=== PATIENT | male | born 1950 | race Caucasian/White ===

== ENCOUNTER → 2016-12-16 07:08 | Day surgery (SDC) | payer MEDICARE, BC ==
[~2016-12-16 07:08] MED LIST: Buffered Lidocaine 1% SYRIN* 3 ML/SYR SYRINGE INTRADERM ONE; Cisatracurium* 2 MG/ML MDV 10 ML ONE; Dexamethasone IV* 4 MG/ML 1 ML (4 MG) ONE; EPHEDrine (Pressors)* 50 MG/ML VIAL ONE; Famotidine IV* 10 MG/ML 2 ML (20 mg) IV ONE; Famotidine IV* 10 MG/ML 2 ML (20 mg) ONE; HYDROmorphone* 1 MG/ML 1 ML SYR IV PRN; KETAMINE HCL* 50 MG/ML 10 ML VIAL ONE; Levalbuterol 0.63MG/3ML NEB INH PRN; Levalbuterol 1.25MG/0.5ML NEB ONE; Lidocain 1% EPI 1:100,000 * 30 ML MDV ONE; Lidocaine 2% PF* 5 ML VIAL ONE; Metoclopramide TAB* 10 MG ONE; Metoclopramide TAB* 10 MG PO ONE; Midazolam* 1 MG/ML 5 ML VIAL (5 MG) ONE; Ondansetron INJ* 2 MG/ML VIAL IV PRN; Ondansetron INJ* 2 MG/ML VIAL ONE; Phenylephrine IV* 40 MCG/ML 10 ML SYRINGE ONE; Propofol* 10 MG/ML 20 ML BTL IV PUSH ONE; Succinylcholine* 20 MG/ML 10 ML VIAL ONE; fentaNYL* 50 MCG/ML 2 ML VIAL (100 MCG VIAL) IV PRN; fentaNYL* 50 MCG/ML 2 ML VIAL (100 MCG VIAL) ONE; oxyCODONE/Acetamin 5/325 MG* TAB PO PRN
[2016-12-16 12:11] VITALS: BP 139/78
--- NOTE | 2016-12-17 02:47 | OP ---
DATE OF OPERATION: 12/16/16 [facility] DATE OF : 46 SURGEON: Chuck Reeves MD FINANCIAL SERVICE PROFESSIONAL: None. ANESTHESIOLOGIST: Gurjit Palmer MD ANESTHESIA: General. PRE-OP DIAGNOSIS: Foreign body of the larynx. POST-OP DIAGNOSIS: Foreign body of the larynx. OPERATIVE PROCEDURE: Microlaryngoscopy with biopsies. ESTIMATED BLOOD LOSS: Negligible. SPECIMEN: Multiple biopsies of the submucosa of the right false vocal cord. INDICATION: This is a 66-year-old male who, several weeks ago, swallowed a fish bone which has left him with a persistent foreign body sensation. He has been able to eat and drink normally with minimal pain, but persistent sense of something in the throat. Flexible laryngoscopy demonstrated what appeared to be slight tenting of the mucosa in the region of the right false vocal cord. A subsequent CT scan revealed a similar appearance to the mucosal edge of the false vocal cord, but no definitive radiopaque foreign body to suggest the presence of a bone. Because of the finding on laryngoscopy and the patient's persistent symptoms, the decision was made to go to the operating room for a micro-laryngoscopy with exploration of the area and possible removal of the bone. DESCRIPTION OF PROCEDURE: The patient was brought to the operating room, general anesthesia was induced and a microlaryngoscopy tube was placed under guidance with the GlideScope. The table was turned and time-out was performed. A variety of laryngoscopes were used to facilitate optimal exposure of the larynx. Ultimately once good exposure was obtained, the laryngoscope was placed into suspension on the Shirley stand. There was fullness focally of the right false vocal cord, which seemed to be in a similar location to the abnormality seen on laryngoscopy, but more rounded suggestive of possible submucosal inflammation. This area was injected with few tenths of a cc of 1% lidocaine with epinephrine. A sickle knife and microscissors were used to incise the mucosa over the area. The submucosal fat was inflamed appearing. The area was extensively dissected both bluntly and sharply with some small spatulas as well as curved scissors. Multiple biopsies of the inflamed- appearing fat were taken with cup forceps in an attempt to hopefully remove a foreign body buried in the area. Ultimately, though, on inspection of the biopsies, it did not appear that there was a bone fragment of any significant size within that tissue. The area was extensively re-explored. Again, more biopsies were taken, but no definitive identifiable bone was able to be identified. When the inflamed fat seemed all to have been essentially resected through multiple biopsies, the decision was made to proceed with a more general diagnostic laryngoscopy. The tongue base and vallecula were explored as were the piriformis sinuses bilaterally in the post coracoid space. No evidence of foreign body was seen in these areas. The patient was then returned to the care of the anesthesiologist. He was extubated without difficulty and delivered to the PACU in stable condition. [id number]/[facility] #: [id number] MTDD
== END | disposition home or self-care (01) ==
LOC: OR 07:08
PROVIDERS: ATTEND Otolaryngology
DX: J38.3 Other diseases of vocal cords (principal); Z79.82 Long term (current) use of aspirin; I25.2 Old myocardial infarction; I25.10 Atherosclerotic heart disease of native coronary artery without angina pectoris; I11.0 Hypertensive heart disease with heart failure; I50.9 Heart failure, unspecified; Z95.5 Presence of coronary angioplasty implant and graft; G47.33 Obstructive sleep apnea (adult) (pediatric); E11.9 Type 2 diabetes mellitus without complications; Z79.84 Long term (current) use of oral hypoglycemic drugs; Z95.810 Presence of automatic (implantable) cardiac defibrillator; E78.5 Hyperlipidemia, unspecified; M10.9 Gout, unspecified; M19.90 Unspecified osteoarthritis, unspecified site; K50.90 Crohn's disease, unspecified, without complications; Z88.8 Allergy status to other drugs, medicaments and biological substances
CPT/HCPCS: 88305; A9270-GY; J0330; J1100; J2250; J2405; J2704; J3010

== ENCOUNTER 2017-06-22 06:09 | Day surgery (SDC) | payer MEDICARE, BC ==
[~2017-06-22 06:09] MED LIST changes: +Buffered Lidocaine 0.9% SYRIN* 5 ML/SYR SYRINGE INTRADERM ONE; -Buffered Lidocaine 1% SYRIN* 3 ML/SYR SYRINGE INTRADERM ONE; -Cisatracurium* 2 MG/ML MDV 10 ML ONE; -Dexamethasone IV* 4 MG/ML 1 ML (4 MG) ONE; -EPHEDrine (Pressors)* 50 MG/ML VIAL ONE; -Famotidine IV* 10 MG/ML 2 ML (20 mg) IV ONE; -Famotidine IV* 10 MG/ML 2 ML (20 mg) ONE; -HYDROmorphone* 1 MG/ML 1 ML SYR IV PRN; -KETAMINE HCL* 50 MG/ML 10 ML VIAL ONE; -Levalbuterol 0.63MG/3ML NEB INH PRN; -Levalbuterol 1.25MG/0.5ML NEB ONE; -Lidocain 1% EPI 1:100,000 * 30 ML MDV ONE; -Lidocaine 2% PF* 5 ML VIAL ONE; -Metoclopramide TAB* 10 MG ONE; -Metoclopramide TAB* 10 MG PO ONE; -Midazolam* 1 MG/ML 5 ML VIAL (5 MG) ONE; -Ondansetron INJ* 2 MG/ML VIAL IV PRN; -Ondansetron INJ* 2 MG/ML VIAL ONE; -Phenylephrine IV* 40 MCG/ML 10 ML SYRINGE ONE; -Propofol* 10 MG/ML 20 ML BTL IV PUSH ONE; -Succinylcholine* 20 MG/ML 10 ML VIAL ONE; -fentaNYL* 50 MCG/ML 2 ML VIAL (100 MCG VIAL) IV PRN; -fentaNYL* 50 MCG/ML 2 ML VIAL (100 MCG VIAL) ONE; -oxyCODONE/Acetamin 5/325 MG* TAB PO PRN
[2017-06-22] MEDS ORDERED: ceFAZolin 2 GM PREMIX (*) 50 ML IVPB ONE (06:47)
[2017-06-22] MEDS ORDERED: Buffered Lidocaine 0.9% SYRIN* 5 ML/SYR SYRINGE ONE (06:47)
[2017-06-22] MEDS ORDERED: Methylene Blue 0.5 %* 50 MG/10 ML AMP IV ONE (07:21)
[2017-06-22] MEDS ORDERED: Lidocaine 1% MPF wEPI 200,000* 30 ML SDV ONE (07:21)
[2017-06-22] MEDS ORDERED: Bupivacaine 0.25% SDV* 30 ML ONE (07:21)
[2017-06-22] MEDS ORDERED: Mineral Oil Sterile, TOPICAL* 25 ML BTL ONE (07:22)
[2017-06-22] MEDS ORDERED: Lidocaine 2% PF * 5 ML VIAL ONE (07:37)
[2017-06-22] MEDS ORDERED: fentaNYL* 50 MCG/ML 2 ML VIAL (100 MCG VIAL) ONE (07:37)
[2017-06-22] MEDS ORDERED: Propofol* 10 MG/ML 20 ML BTL IV PUSH ONE ×2 (07:37→09:01)
[2017-06-22] MEDS ORDERED: Midazolam* 1 MG/ML 2 ML VIAL (2 MG) ONE ×3 (07:37→08:35)
[2017-06-22] MEDS ORDERED: Petrolatum 5 GM* 5 GM PACKET ONE (09:11)
[2017-06-22 09:48] VITALS: BP 119/80
== END 2017-06-22 10:09 | disposition home or self-care (01) ==
LOC: OR 06:09
PROVIDERS: ATTEND Plastic Surgery
DX: C00.0 Malignant neoplasm of external upper lip (principal); E11.9 Type 2 diabetes mellitus without complications; Z79.84 Long term (current) use of oral hypoglycemic drugs; I25.10 Atherosclerotic heart disease of native coronary artery without angina pectoris; I25.2 Old myocardial infarction; Z95.5 Presence of coronary angioplasty implant and graft; I10 Essential (primary) hypertension; K51.90 Ulcerative colitis, unspecified, without complications
CPT/HCPCS: 88305; 88331; 88332; A9270-GY; J0690; J2001; J2250; J2704; J3010

== ENCOUNTER 2017-07-03 07:12 | Inpatient (IN) | payer MEDICARE, BC ==
[2017-07-03] MEDS ORDERED: Morphine INJ* 4 MG/ML 1 ML CARPUJECT IV ONE ×2 (07:54→10:06)
[2017-07-03] MEDS ORDERED: Ondansetron INJ* 2 MG/ML VIAL IV ONE (07:54)
[2017-07-03 08:24] LABS: Add Diff/Slide Review? Slide Review Added; Comments Flag Yes; Hematocrit 41 % (42-52); Hemoglobin 14.4 g/dl (14.0-18.0); Mean Corpuscular HGB Conc 35 g/dl (31-36); Mean Corpuscular Hemoglobin 30 pg (27-31); Mean Corpuscular Volume 85 fL (80-94); Mean Platelet Volume 9 um3 (7.4-10.4); Red Blood Count 4.89 10^6/ul (4.0-5.4); Red Cell Distribution Width 14 % (10.5-15); White Blood Count 18.1 10^3/ul (3.5-10.8)
[2017-07-03 08:31] LABS: Albumin 3.6 g/dL (3.2-5.2); BUN/Creatinine Ratio 19.7 (8-20); C Reactive Protein 119.91 mg/L (< 5.00); Calcium 9.5 mg/dL (8.6-10.3); EGFR African American 69.2 (>60); EGFR Non-African American 53.8 (>60); Globulin 3.8 g/dL (2-4); Potassium 4.3 mmol/L (3.5-5.0); Total Bilirubin 0.8 mg/dL (0.2-1.0); Total Protein 7.4 g/dL (6.4-8.9)
[2017-07-03 08:32] LABS: Troponin I 0.02 ng/mL (<0.04)
--- NOTE | 2017-07-03 10:46 | RAD ---
CLINICAL HISTORY: Right lower quadrant pain, colitis clear COMPARISON: July 07, 2012 TECHNIQUE: Multiple contiguous axial CT scans were obtained of the abdomen and pelvis, without intravenous contrast enhancement. Coronal and sagittal multiplanar reformations are submitted for review. Oral contrast was administered. FINDINGS: The study is limited by the lack of intravenous contrast. This limits evaluation of the solid organs and vasculature. Evaluation of the pelvis is also limited by streak artifact from bilateral hip prostheses. LUNG BASES: The lung bases are clear. LIVER: The liver is diffusely low in attenuation compared to the spleen. There are no focal hepatic parenchymal masses. BILE DUCTS: There is no intrahepatic or extrahepatic biliary dilatation. GALLBLADDER: The gallbladder is normal, without pericholecystic inflammatory change. PANCREAS: The pancreas is normal, without mass or ductal dilatation. SPLEEN: Normal in size and appearance. UPPER GI TRACT: Evaluation of the gastrointestinal tract is limited by incomplete gastric distention. The upper GI tract is unremarkable. SMALL BOWEL AND MESENTERY: The small bowel is normal in contour, course, and caliber. There is no obstruction or dilatation. COLON: Evaluation of the distal colon is limited by streak artifact from bilateral hip prostheses. There are multiple diverticula of the distal colon. The colon is relatively featureless. There is a tubular, vermiform, hollow viscus that is blind ending, and originates from the cecum, consistent with a normal appendix. There is no periappendiceal inflammatory change. This is best seen on axial images 45 through 53. ADRENALS: Normal bilaterally. KIDNEYS: There is a 1.2 cm tract was of lower pole of the left kidney. There is been interval development of mild right pelviectasis and hydroureter. The distal ureters appear by streak artifact from hip prostheses. BLADDER: Evaluation the bladder is limited by streak artifact from bilateral hip prostheses. PELVIC ORGANS: Evaluation with pelvic organs is limited by streak artifact from bilateral hip prostheses. AORTA: There is calcific atherosclerotic disease of the abdominal aorta and its branches, without aneurysmal dilatation IVC: Unremarkable LYMPH NODES: There is no lymphadenopathy by size criteria. ABDOMINAL WALL: There is no evidence for abdominal wall hernia. BONES AND SOFT TISSUES: There are bilateral pars defects at L5 with grade 1 anterolisthesis of L5-S1. Degenerative changes are noted. The patient is status post bilateral hip] plasty. OTHER: None IMPRESSION: 1. EVALUATION IS LIMITED BY BILATERAL STREAK ARTIFACTS FROM HIP PROSTHESES WHICH LIMITS EVALUATION OF THE PELVIS:.. 2. THERE HAS BEEN INTERVAL DEVELOPMENT OF RIGHT-SIDED HYDRONEPHROSIS. 3. THERE IS LEFT-SIDED NEPHROLITHIASIS. 4. THERE IS DIVERTICULOSIS OF THE DISTAL COLON. 5. THE APPENDIX IS NORMAL. 6. FATTY INFILTRATION OF THE LIVER. 7. 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
[2017-07-03] MEDS ORDERED: Ketorolac INJ* 30 MG/ML 1 ML VIAL IV PUSH ONE (12:22)
[2017-07-03] MEDS ORDERED: NS 0.9% 1000 ML* 1,000 ML IV ONE (12:25)
[2017-07-03] MEDS ORDERED: NS 0.9% 1000 ML* 2,000 ML IV ONE (12:31)
[2017-07-03] MEDS ORDERED: methylPREDNISolone 125 MG* 2 ML VIAL IV ONE (13:07)
[2017-07-03 13:12] LABS: Urine Bacteria Absent (Absent); Urine Bilirubin Negative (Negative); Urine Glucose 2+(150 mg/dL) (Negative); Urine Nitrite Negative (Negative)
[2017-07-03] MEDS ORDERED: HYDROmorphone INJ* 1 MG/ML CARPUJECT SYRINGE IV SLOW PU PRN (14:18)
[2017-07-03] MEDS ORDERED: Ondansetron INJ* 2 MG/ML VIAL IV PRN (14:28)
[2017-07-03] MEDS ORDERED: Dextrose 50% Syringe 50 ML* 25 GM/50 ML SYRINGE IV PUSH PRN (14:28)
[2017-07-03] MEDS ORDERED: Iohexol 180 (CONTRAST) 10 ML SDV IV ONE (14:35)
[2017-07-03] MEDS ORDERED: fentaNYL* 50 MCG/ML 2 ML VIAL (100 MCG VIAL) ONE (14:42)
[2017-07-03] MEDS ORDERED: Midazolam* 1 MG/ML 5 ML VIAL (5 MG) ONE (14:42)
[2017-07-03] MEDS ORDERED: Buffered Lidocaine 0.9% SYRIN* 5 ML/SYR SYRINGE INTRADERM ONE (14:52)
[2017-07-03] MEDS ORDERED: oxyCODONE TAB* 5 MG TAB PO PRN (14:53)
[2017-07-03] MEDS ORDERED: HYDROmorphone INJ* 1 MG/ML CARPUJECT SYRINGE IV PRN (14:53)
[2017-07-03] MEDS ORDERED: DiMENhydriNATE IV* 50 MG/ML VIAL IV PUSH PRN (14:53)
[2017-07-03] MEDS ORDERED: Acetaminophen TAB* 325 MG PO PRN (14:53)
[2017-07-03] MEDS ORDERED: cefTRIAXone(*) 2 GM ADDV.VIAL IVPB ONE (15:24)
[2017-07-03] MEDS ORDERED: Dexamethasone IV* 4 MG/ML 1 ML (4 MG) ONE (15:57)
[2017-07-03] MEDS ORDERED: Propofol* 10 MG/ML 20 ML BTL IV PUSH ONE (15:57)
[2017-07-03] MEDS ORDERED: Lidocaine 2% PF * 5 ML VIAL ONE (15:57)
[2017-07-03] MEDS ORDERED: Ketorolac INJ* 30 MG/ML 1 ML VIAL ONE (15:57)
[2017-07-03] MEDS ORDERED: DiMENhydriNATE IV* 50 MG/ML VIAL ONE (16:02)
--- NOTE | 2017-07-03 16:36 | RAD ---
INDICATION: Right cystoscopy and retrograde pyelogram COMPARISONS: CT dated July 03, 2017 TECHNIQUE: Fluoroscopy was provided for a retrograde pyelogram. Total fluoroscopy time is: 12 seconds FINDINGS: Contrast is noted within the renal collecting system IMPRESSION: FLUOROSCOPY WAS PROVIDED FOR A RETROGRADE PYELOGRAM CPT II Codes: 6045F
--- NOTE | 2017-07-03 17:16 | HP ---
CC: Dr. Gutierrez * ADMISSION HISTORY AND PHYSICAL: DATE OF ADMISSION: PRIMARY CARE PROVIDER: Dr. Gutierrez. HEALTHCARE PROXY: His Asha. CODE STATUS: Full. SOURCE OF INFORMATION: History obtained from interview with the patient, review of past medical records. RELIABILITY: Past medical records reliability per the patient is fair. CHIEF COMPLAINT: Abdominal pain. HISTORY OF PRESENT ILLNESS: This is a 67-year-old man with past medical history includes CAD, diabetes, ulcerative colitis, as well as multiple renal calculi, status post shockwave lithotripsy, who over the last several months has had increasing malaise, had noted 3 weeks prior to have what was thought to be a flare of his ulcerative colitis. Typically, his flares involve bloating with frequent stool mucus, gas that occur 1 to 2 times per year. His episode was similar, beginning 3 weeks ago had increasing defecation associated with blood in the stool, increasing gas. Over the last 3 weeks, he lost approximately 20 pounds. Three weeks ago, he has been followed by Gastroenterology, started Apriso, Mesalamine and intrarectal hydrocortisone. He did not improve and in fact worsened, and 1 week prior to presentation he started methylprednisone 40 mg daily. He thinks that there may have been a slight improvement since that time; however, he is hesitant to say that that has occurred. Prior to presentation, he was moving his bowels 24 times per day with continued blood and mucous. The night prior to presentation, pain changed from becoming generalized to located in his right lower quadrant that was described as aching, more severe and different than his ulcerative colitis. His pain did feel "somewhat" similar to past episodes of nephrolithiasis. It was associated with dry heaving and nausea. He presented to the emergency room where he was found with obstructing right nephrolithiasis. 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 The most strenuous activity performed is chopping firewood and carrying it. Although he does note recently it has been more difficult and he did only this to help his brother to perform this recently. He does note increased malaise over the last several months and feeling down, although he associates that with his recent illness. He has not discussed starting an antidepressant and is pre-contemplated with respect to medications for depression at this time. PAST MEDICAL HISTORY: CAD with MIs and 3 stents; type 2 diabetes; hypertension ; hyperlipidemia; ulcerative colitis; bilateral partial hip arthroscopies; multiple renal calculi, status post shockwave lithotripsy; central sleep apnea described by Dr. Soto's notes as complex, now transitions from BiPAP to ASV, although her notes indicate she would have preferred the continued BiPAP. Combined systolic and diastolic heart failure, last EF of 35%. 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 HOME MEDICATIONS: 1. Atorvastatin 20 mg in the evening. 2. Aspirin 81 mg daily. 3. Allopurinol 300 mg in the morning. 4. Acetaminophen 650 mg every 4 hours as needed for pain. 5. Metoprolol succinate 12.5 mg in the morning. 6. Metformin 1000 mg twice daily. 7. Mesalamine 0.75 g twice daily as needed. 8. Losartan 100 mg in the morning. 9. Hydrocortisone intrarectal 100 mg at bedtime as needed. 10. Glipizide 5 mg twice daily. 11. CoQ 10 60 mg in the evening. 12. Vitamin D3 1000 units in the evening. 13. Budesonide 9 mg twice daily. 14. Potassium citrate 2 tabs 3 times daily. 15. [place]-3 fatty acids 2000 mg twice daily. 165. Nitrostat 0.4 mg sublingual as needed for chest pain. ALLERGIES: AZATHIOPRINE, BALSALAZIDE, and IODOQUINOL. FAMILY HISTORY: Mother with CAD at age 65. Sister with CAD. Father with prostate cancer. SOCIAL HISTORY: No tobacco. Drinks 1 to 2 drinks per week. 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 REVIEW OF SYSTEMS: As per HPI, otherwise all other systems negative. PHYSICAL EXAMINATION GENERAL: Well-appearing, lying flat in bed, interactive, pleasant, no apparent distress. VITAL SIGNS: In the emergency room 115/69, heart rate ranging from 47 to 75, 96 % on room air, T-max 97.8. HEENT: Oropharynx is clear. He has dry mucous membranes. Sclerae are anicteric. NECK: He has elevated JVD to the angle of his jaw lying approximately 35 degrees in bed. LUNGS: His lungs were clear to auscultation throughout. HEART: His distant heart sounds, potentially low rumbling diastolic murmur but difficult to auscultate. ABDOMEN: Soft, nondistended with tenderness greatest in the right lower quadrant. No rebound or guarding. EXTREMITIES: Warm and well perfused without cyanosis, clubbing, or edema. NEUROLOGIC: He is alert and oriented x3. His cranial nerves are intact. There is no apparent anxiety, agitation, or depression. DIAGNOSTIC STUDIES/LABORATORY DATA: Labs reviewed notable for sodium 131, chloride 96, creatinine 1.32. Lactic acid 2.8, glucose 254, CRP is 119. White blood cell count is 18.1. He is noted to be taking steroids. Hemoglobin 14.4. His urine specific gravity 1.033. Positive protein, blood, ketones. Red blood cells amorphus crystals. EKG, sinus bradycardia, ventricular rate of 53. Left axis, no R-wave progression. Qs in II, III, and aVF. Data reviewed, CT abdomen and pelvis, impression: Evaluation is limited by bilateral streak artifacts from hip prosthesis. There have been interval development of right-sided hydronephrosis. There is left-sided nephrolithiasis. There is diverticulosis in the distal colon. Appendix normal. Fatty infiltration of liver. Spondylosis with anterolisthesis of L5-S1. ASSESSMENT AND PLAN: This is a 67-year-old man with past medical history of combined systolic and diastolic heart failure, coronary artery disease, severe obstructive sleep apnea, ulcerative colitis and past episodes of nephrolithiasis requiring shockwave lithotripsy presenting with abdominal pain. 1. Abdominal pain does appear to be a combination of underlying worsening ulcerative colitis flare, superimposed nephrolithiasis. For nephrolithiasis, he is taken to the operating room today with Dr. Guevara for stone removal. Continue Dilaudid 1 mg q.4 hours, discontinue Toradol at this time. In respect with ulcerative colitis, transition to IV steroids, methylprednisolone 20 mg q.8 hours. Holding on antibiotics at this time he did think he was getting better as an outpatient. Hold budesonide and rectal hydrocortisone. Return CRPs and ESRs, CBC tomorrow though I suspect leukocytosis in the setting of steroid. 2. Increased lactic acidosis. Repeat lactic acid now, status post receipt of IV fluids. 3. Acute kidney injury in the same dehydration and nephrolithiasis in addition to underlying ulcerative colitis flare. Fluids that he has received above, repeat tomorrow. Gentle with IV fluids and I gave additional to the bolus received in the emergency room given his compliant diastolic/systolic heart failure. 4. Obstructive sleep apnea. Continue with noninvasive positive pressure ventilation with careful attention to immediately after surgery. 5. Type 2 diabetes. Hold metformin and glipizide, cover with sliding scale lispro. In regard to his risk assessment prior to surgery, he is a high risk given his acute kidney injury, less so diabetes and more. With regard to his coronary artery disease, mixed heart failure and complex obstructive sleep apnea , potential consideration should be paid towards his airway and recommend noninvasive positive pressure in the form of BiPAP soon after extubation if needed. 6. DVT prophylaxis: SCDs in the setting of rectal bleeding. [id number]/[facility] #: [id number] CECE
--- NOTE | 2017-07-03 17:23 | PN ---
Progress Note - Progress Note Date of Service: 07/03/17 Note: Addendum: Discussed with anesthesia and urology. During surgery and after procedure HR in 50-60s. No pacer spikes were seen on telemetry. Patient is asymptomatic but and pacer may be set at low of 50 bpm but if his heart rate drops <50 may consider PPM interrogation.
[2017-07-03] MEDS: Insulin LISPRO* 1 UNITS UNIT SUBCUT SCH ×2 (18:21→20:33)
[2017-07-03] MEDS: Atorvastatin* 20 MG TAB PO SCH (19:25)
[2017-07-03] MEDS: methylPREDNISolone SOD 40 MG* 1 ML VIAL IV SCH (19:25)
[2017-07-03] MEDS: CMC:Melatonin (NF) 3 MG TAB PO PRN (20:33)
[2017-07-04] MEDS: methylPREDNISolone SOD 40 MG* 1 ML VIAL IV SCH ×3 (02:15→17:35)
[2017-07-04] MEDS: Acetaminophen TAB* 325 MG PO PRN ×3 (04:24→21:18)
[2017-07-04] MEDS: Insulin LISPRO* 1 UNITS UNIT SUBCUT SCH ×5 (08:32→21:17)
[2017-07-04 08:46] LABS: Hematocrit 35 % (42-52); Hemoglobin 12.1 g/dl (14.0-18.0); Mean Corpuscular HGB Conc 35 g/dl (31-36); Mean Corpuscular Hemoglobin 29 pg (27-31); Mean Corpuscular Volume 84 fL (80-94); Mean Platelet Volume 8 um3 (7.4-10.4); Red Blood Count 4.16 10^6/ul (4.0-5.4); Red Cell Distribution Width 14 % (10.5-15); White Blood Count 14.3 10^3/ul (3.5-10.8)
[2017-07-04 08:53] LABS: BUN/Creatinine Ratio 27.2 (8-20); Calcium 8.6 mg/dL (8.6-10.3); EGFR African American 92.1 (>60); EGFR Non-African American 71.6 (>60); Potassium 4.4 mmol/L (3.5-5.0)
[2017-07-04] MEDS ORDERED: Influenza VAC *QUAD* 2017-18* 0.5 ML SYRINGE IM ONE (09:00)
[2017-07-04] MEDS ORDERED: Aspirin TAB* 325 MG PO SCH (09:00)
[2017-07-04] MEDS: Allopurinol TAB* 300 MG PO SCH (10:12)
[2017-07-04] MEDS: Metoprolol Succinate XL TAB* 25 MG PO SCH (10:13)
[2017-07-04] MEDS: Losartan TAB* 25 MG PO SCH (10:13)
[2017-07-04] MEDS: PTO:Mesalamine (NF) 0.375 GM CAP PO PRN ×2 (11:02→21:19)
[2017-07-04] MEDS: Aspirin Low Dose CHEW TAB* 81 MG PO SCH (11:05)
--- NOTE | 2017-07-04 13:00 | PN ---
Subjective Date of Service: 07/04/17 Interval History: Seen with in room abdominal pain almost completely resolved BMs every 5 hrs with less red blood but still mucous No nausea Would like to attempt ensure with meals Objective Active Medications: Acetaminophen (Tylenol Tab*) 650 mg PO Q4H PRN PRN Reason: FEVER/PAIN Last Admin: 07/04/17 11:05 Dose: 650 mg [facility]op[facility] ([facility]oprim Tab*) [facility] Last Admin: 07/04/17 10:12 Dose: 300 mg Aspirin (Aspirin Low Dose Tab*) [facility] Last Admin: 07/04/17 11:05 Dose: 81 mg Atorvastatin Calcium (Lipitor*) 20 mg PO 1700 [facility] Last Admin: 07/03/17 19:25 Dose: 20 mg Dextrose (D50w Syringe 50 Ml*) 12.5 gm IV PUSH .FOR FS < 60 - SS PRN PRN Reason: FS < 60 Insulin Human Lispro (Humalog*) 0 units [facility] PRN Reason: Protocol Last Admin: 07/04/17 10:14 Dose: 2 units Losartan Potassium (Cozaar Tab*) 100 mg PO [facility] Last Admin: 07/04/17 10:13 Dose: 100 mg Melatonin (Melatonin (Nf)) 3 mg PO BEDTIME PRN; Protocol PRN Reason: Sleep Last Admin: 07/03/17 20:33 Dose: 3 mg Mesalamine (Apriso (Nf)) 0.75 gm PO BID PRN PRN Reason: colitis flair Last Admin: 07/04/17 11:02 Dose: 0.75 gm Methylprednisolone Sodium Succinate (Solu-Medrol 40 Mg) 20 mg IV Q8H [facility] Last Admin: 07/04/17 10:15 Dose: 20 mg Metoprolol Succinate (Toprol Xl Tab*) 12.5 mg PO [facility] Last Admin: 07/04/17 10:13 Dose: 12.5 mg Ondansetron HCl (Zofran Inj*) 4 mg IV Q4H PRN PRN Reason: NAUSEA Oxycodone HCl (Roxycodone Tab*) 5 mg PO ONCE PRN PRN Reason: PAIN - MODERATE Stop: 07/04/17 14:54 Vital Signs 07/03/17 07/03/17 07/03/17 17:51 17:54 18:34 Temperature 97.8 F 98.8 F Pulse Rate 54 58 Respiratory 18 16 16 Rate Blood Pressure 125/66 99/63 (mmHg) O2 Sat by Pulse 100 99 Oximetry 07/03/17 07/03/17 07/03/17 19:34 19:41 20:37 Temperature 98.0 F Pulse Rate 56 Respiratory 12 17 16 Rate Blood Pressure 121/77 (mmHg) O2 Sat by Pulse 96 Oximetry 07/03/17 07/04/17 07/04/17 23:52 03:47 07:47 Temperature 98.0 F 98.3 F 99.0 F Pulse Rate 62 58 53 Respiratory 16 16 16 Rate Blood Pressure 111/58 131/71 123/66 (mmHg) O2 Sat by Pulse 96 98 93 Oximetry 07/04/17 07/04/17 08:51 11:36 Temperature 98.4 F Pulse Rate 54 Respiratory 18 16 Rate Blood Pressure 109/62 (mmHg) O2 Sat by Pulse 99 Oximetry Oxygen Devices in Use Now: None Appearance: NAD Eyes: No Scleral Icterus, PERRLA Ears/Nose/Mouth/Throat: NL Teeth, Lips, Gums, Clear Oropharnyx, Mucous Membranes Moist Neck: NL Appearance and Movements; NL JVP, Trachea Midline Respiratory: Symmetrical Chest Expansion and Respiratory Effort, Clear to Auscultation Cardiovascular: NL Sounds; No Murmurs; No JVD, RRR Abdominal: NL Sounds; No Tenderness; No Distention, No Hepatosplenomegaly Lymphatic: No Cervical Adenopathy Skin: No Rash or Ulcers Neurological: Alert and Oriented x 3 Result Diagrams: 07/04/17 08:30 07/04/17 08:30 Microbiology and Other Data: Microbiology 07/04/17 07:55 Stool Gross Appearance - Final Stool C. difficile DNA Amplification - Final 027 Presumptive NEGATIVE Toxigenic C.diff NEGATIVE 07/04/17 07:55 Stool Occult Blood (MICHAEL) - Final Stool Assess/Plan/Problems-Billing Assessment: 67 yo M h/o ulcerative colitis, CAD, DM2, POOL p/w abdominal pain found with UC flare AND obstructing right sided nephrolithiasis - Patient Problems (1) Nephrolithiasis Comment: s/p removal 07/03 (2) Ulcerative colitis Comment: improving c/w IV steroids c/w mesalamine advance diet (3) Diabetes Comment: Lispro SS while on steroids (4) Acute kidney injury Comment: resolved (5) DVT prophylaxis Comment: SCDs in setting fo rectal bleeding
--- NOTE | 2017-07-04 13:13 | OP ---
CC: Dr. Gutierrez * DATE OF OPERATION: 07/03/17 - ROOM #[id number] DATE OF : 46 SURGEON: Henry Guevara MD ANESTHESIOLOGIST: Tanisha Licona MD ANESTHESIA: General. PRE-OP DIAGNOSES: 1. Right hydronephrosis. 2. Right ureteral calculus. POST-OP DIAGNOSES: 1. Right hydronephrosis. 2. Right ureteral calculus. OPERATIVE PROCEDURE: 1. Cystoscopy. 2. Right ureteroscopy and extraction of distal right ureteral calculus (6 mm). 3. Right retrograde pyelography. INDICATIONS: Mr. Santoyo is a 67-year-old white male, who is a known stone former and had the treatment for left renal calculi in the past. He presented to our office last week complaining of urgency, frequency, and some bladder pain. His urinalysis was negative and had good bladder emptying. The symptoms spontaneously improved. Early this morning, he developed symptoms of right renal colic and he represented to the emergency room. The patient also has been having reactivation of his ulcerative colitis and was started yesterday on steroids. The patient had a CT of the abdomen and pelvis with oral contrast, but no IV contrast. This study showed moderate right hydroureteronephrosis with tortuosity of the proximal ureter. The distal ureter could not be seen because of artifacts from bilateral hip prostheses. Because of above history and findings, the duration of the pain, and the degree of hydronephrosis, the patient is taken to the operating room for the above procedure. PATHOLOGY AT CYSTOSCOPY: The penile and bulbar urethrae looked normal. The prostatic urethra measured about 2.5 cm in length. There was moderate obstruction by prostate enlargement and elevation of the bladder neck. Examination of the bladder showed no suspicious lesions. The left ureteral orifice looked normal. There was some edema around the right orifice. A grayish calculus was noted just proximal to the orifice. Upon right ureteroscopy, a 5- to 6-mm calculus that had the gross appearance of calcium oxalate stone was noted. There was dilatation of the ureter proximal to the stone. Inspection of the whole ureter all the way up to the level of the ureteropelvic junction showed no additional calculi. Right retrograde pyelography showed moderate right hydronephrosis and a slight kink of the proximal ureter. DESCRIPTION OF PROCEDURE: After successful general anesthesia, the patient was placed in the lithotomy position and was prepped and draped for a cystoscopy. Cystoscopy was performed. The bladder was inspected and the above findings were noted. A flexible-tip guidewire was then introduced into the right orifice and positioned in the area of the renal pelvis. A 6.5 semi-rigid ureteroscope was then introduced inside the bladder. A flexible-tip basket was introduced through the port of the ureteroscope and the flexible tip was introduced in to the right orifice and was used as a guide to introduce the ureteroscope into the right ureter with minimal trauma. The calculus was identified. It was felt that it can be basketed safely without having to break it. The calculus was then extracted and sent for stone analysis. The ureteroscope was then introduced all the way into the proximal ureter and no additional calculi were seen. The ureteroscope was then removed. Retrograde pyelography was performed. There was adequate drainage of contrast from the kidney and the ureter. For that reason, it was decided not to place a ureteral stent. The patient tolerated the procedure well and left the operating room in good condition. [id number]/[facility] #: [id number] [facility]
[2017-07-04] MEDS: Atorvastatin* 20 MG TAB PO SCH (17:35)
[2017-07-04] MEDS: CMC:Melatonin (NF) 3 MG TAB PO PRN (21:19)
[2017-07-05] MEDS: methylPREDNISolone SOD 40 MG* 1 ML VIAL IV SCH ×2 (02:14→10:21)
[2017-07-05 05:56] LABS: Hematocrit 35 % (42-52); Mean Corpuscular HGB Conc 35 g/dl (31-36); Mean Corpuscular Hemoglobin 29 pg (27-31); Mean Corpuscular Volume 84 fL (80-94); Mean Platelet Volume 8 um3 (7.4-10.4); Red Cell Distribution Width 14 % (10.5-15); White Blood Count 13.7 10^3/ul (3.5-10.8)
[2017-07-05 06:11] LABS: BUN/Creatinine Ratio 28.9 (8-20); Calcium 8.6 mg/dL (8.6-10.3); EGFR African American 107.6 (>60); EGFR Non-African American 83.7 (>60); Potassium 4.3 mmol/L (3.5-5.0)
[2017-07-05] MEDS: Acetaminophen TAB* 325 MG PO PRN (08:02)
[2017-07-05 08:04] VITALS: BP 140/70
[2017-07-05] MEDS: Losartan TAB* 25 MG PO SCH (08:12)
[2017-07-05] MEDS: Aspirin Low Dose CHEW TAB* 81 MG PO SCH (08:13)
[2017-07-05] MEDS: Allopurinol TAB* 300 MG PO SCH (08:13)
[2017-07-05] MEDS: Metoprolol Succinate XL TAB* 25 MG PO SCH (08:14)
[2017-07-05] MEDS: Insulin LISPRO* 1 UNITS UNIT SUBCUT SCH (08:16)
--- NOTE | 2017-07-06 05:36 | DS ---
CC: Dr. Gutierrez; Dr. Del Rosario * DISCHARGE SUMMARY: DATE OF ADMISSION: 07/03/17 DATE OF DISCHARGE: 07/05/17 PRIMARY CARE PROVIDER: Dr. Gutierrez. CONSULTING UROLOGIST: Dr. Guevara. DISCHARGING PROVIDER: KILLIAN Garcia SUPERVISING PHYSICIAN: Dr. Kiera Combs * (DICTATED BY KILLIAN GARCIA) PRIMARY DISCHARGE DIAGNOSES: 1. Obstructing right ureteral stone, status post extraction by Dr. Guevara 04/12 without retained ureteral stent. 2. Acute kidney injury secondary to hypovolemia - resolved. 3. Ulcerative colitis flare. 4. Hyperglycemia with known diabetes mellitus, not typically on steroids at home. DISCHARGE MEDICATIONS: 1. Potassium citrate 2 tablets p.o. 3 times daily. 2. Acetaminophen 650 mg p.o. q.4 hours as needed for pain. 3. Allopurinol 300 mg p.o. daily. 4. Aspirin 81 mg p.o. daily. 5. Atorvastatin 20 mg p.o. daily. 6. Budesonide 9 mg p.o. twice daily - hold while on prednisone. 7. Vitamin D 3000 units p.o. daily. 8. Coenzyme Q10 60 mg p.o. nightly. 9. Glipizide 10 mg p.o. twice daily. 10. Hydrocortisone suppository 100 mg rectally at bedtime. 11. Losartan 100 mg p.o. daily. 12. Mesalamine 0.75 g p.o. twice daily. 13. Metformin 1000 mg p.o. twice daily. 14. Metoprolol succinate 12.5 mg p.o. daily. 15. Nitroglycerine 0.4 mg sublingual as needed for chest pain. 16. Fish oil 2000 mg p.o. twice daily. 17. Prednisone at a tapering dose starting at 40 mg daily with instructions to taper 10 mg weekly or as directed by Dr. Del Rosario. Medication changes: 1. Hold budesonide. 2. Prednisone per taper instructions. 3. Increase glipizide while on prednisone. HOSPITAL IMAGIN. CT abdomen and pelvis demonstrates right-sided hydronephrosis with some artifact limiting evaluation of the pelvis, left-sided nephrolithiasis, no other acute process noted. 2. Retrograde pyelogram. HOSPITAL COURSE: This is a 67-year-old gentleman with ulcerative colitis and non- insulin-dependent diabetes, as well as known history of nephrolithiasis with prior lithotripsy generally followed by Dr. Thomas for [facility], who presented to the emergency department with complaints of abdominal pain. The patient started with abdominal pain actually almost 3 weeks before hospital admission with associated increased number of bowel movements, gas, blood in the stool, and mucus consistent with his prior flares of ulcerative colitis. He was seen by his machine splitter and started on Apriso/mesalamine and rectal hydrocortisone suppositories and the day prior to admission was started on oral prednisone. Despite these interventions, the patient did not feel that his colitis symptoms were improving significantly. The pain that brought him to the emergency department; however, was a sudden sharp right lower quadrant abdominal pain not consistent with his prior ulcerative colitis flares. Initial imaging demonstrated right-sided hydronephrosis with suspicion for an obstructing right ureteral stone. Initial labs demonstrated a leukocytosis with a white blood cell count of 18,000 thought to be related to recent steroid use. No significant electrolyte derangements, but lactic acid was elevated at 2.8 with a CRP of 120 and mildly elevated BUN and creatinine to 26 and 1.32. The patient underwent retrograde pyelogram with Dr. Guevara and extraction of a 6- mm stone. Right ureteral stent was not required. Urinalysis did not demonstrate signs of infection. The patient's reported release of his right lower quadrant abdominal pain with this continued to be quite symptomatic related to his colitis and was started on IV corticosteroids. The patient's colitis symptoms improved throughout his hospital stay. His appetite increased, the frequency of his stools decreased, and his abdominal pain decreased. He was still mildly symptomatic at the time of discharge; however, but symptoms felt to be manageable at home. Of note, the patient was at least moderately hyperglycemic during his hospital stay likely related to the corticosteroids. DISPOSITION AND FOLLOWUP PLAN: The patient is being discharged to home. Recommend medication changes as outlined above. He was previously prescribed a prednisone taper by Dr. Del Rosario and was instructed to complete those taper instructions starting at 40 mg daily. Instructions to taper 10 mg weekly or as further directed by Dr. Del Rosario. A followup appointment was made with Dr. Del Rosario for the 16 of July. No specific followup necessary regarding his ureteral stone extraction, but he can continue to follow up with Dr. Thomas as previously scheduled or on an as needed basis. Regarding his hyperglycemia, his glipizide was doubled at the time of discharge with instructions to check his glucose before breakfast and dinner, record those results and discuss with Dr. Gutierrez in regards to further management. Can tolerate some hyperglycemia during his use of corticosteroids, but if it becomes severely out of control, he may require insulin for a short period of time. His glipizide should be tapered back to his prior dose as his prednisone is tapered as well. KILLIAN GARCIA [id number]/[facility] #: [id number] CECE
== END 2017-07-05 11:20 | disposition home or self-care (01) | DRG 669 ==
LOC: ED 07:12 → OR 14:46 → ED 14:49 → OBSVTOIN 17:44 → SSU 17:44
PROVIDERS: ADMIT Urology; ATTEND Internal Medicine
PROC: BT1D1ZZ Fluoroscopy of Right Kidney, Ureter and Bladder using Low Osmolar Contrast (ICD-10-PCS; 2017-07-03)
PROC: 0TC68ZZ Extirpation of Matter from Right Ureter, Via Natural or Artificial Opening Endoscopic (ICD-10-PCS; principal; 2017-07-03 15:00)
DX: N13.2 Hydronephrosis with renal and ureteral calculous obstruction (principal); N17.9 Acute kidney failure, unspecified; E87.2 Acidosis; I11.0 Hypertensive heart disease with heart failure; I50.42 Chronic combined systolic (congestive) and diastolic (congestive) heart failure; K51.90 Ulcerative colitis, unspecified, without complications; E11.65 Type 2 diabetes mellitus with hyperglycemia; I10 Essential (primary) hypertension; I25.10 Atherosclerotic heart disease of native coronary artery without angina pectoris; E78.5 Hyperlipidemia, unspecified; G47.31 Primary central sleep apnea; G47.33 Obstructive sleep apnea (adult) (pediatric); E86.0 Dehydration; M19.90 Unspecified osteoarthritis, unspecified site; N13.1 Hydronephrosis with ureteral stricture, not elsewhere classified; E86.1 Hypovolemia; Z79.52 Long term (current) use of systemic steroids; Z80.42 Family history of malignant neoplasm of prostate; Z87.442 Personal history of urinary calculi; I25.2 Old myocardial infarction; Z95.5 Presence of coronary angioplasty implant and graft; Z85.828 Personal history of other malignant neoplasm of skin; Z88.8 Allergy status to other drugs, medicaments and biological substances; Z88.1 Allergy status to other antibiotic agents; Z82.49 Family history of ischemic heart disease and other diseases of the circulatory system; Z95.0 Presence of cardiac pacemaker; Z79.82 Long term (current) use of aspirin; Z79.84 Long term (current) use of oral hypoglycemic drugs
CPT/HCPCS: 36415; 74176; 74420; 80048; 80053; 81003; 81015; 82272; 82365; 82947; 83605; 83690; 84484; 85025; 85027; 86140; 86850; 86900; 86901; 87493; 88300; 90686; 93005; A9270-GY; J0696; J1100; J1240; J1885; J2250; J2270; J2405; J2704; J2920; J3010

== ENCOUNTER 2017-07-23 22:47 | Emergency (ER) | payer MEDICARE, BC ==
[2017-07-23 22:55] VITALS: BP 126/46
== END 2017-07-24 00:13 | disposition left against medical advice (07) ==
LOC: ED 22:47
DX: R53.1 Weakness (principal); Z53.21 Procedure and treatment not carried out due to patient leaving prior to being seen by health care provider

== ENCOUNTER 2017-08-15 19:24 | Emergency (ER) | payer MEDICARE, BC ==
[2017-08-15] MEDS ORDERED: Morphine INJ* 4 MG/ML 1 ML CARPUJECT IV ONE (19:56)
[2017-08-15] MEDS ORDERED: NS 0.9% 1000 ML* 1,000 ML IV ONE (19:56)
[2017-08-15] MEDS ORDERED: Ondansetron INJ* 2 MG/ML VIAL IV ONE (19:56)
[2017-08-15 20:58] LABS: Hematocrit 33 % (42-52); Hemoglobin 11.1 g/dl (14.0-18.0); Mean Corpuscular HGB Conc 34 g/dl (31-36); Mean Corpuscular Hemoglobin 29 pg (27-31); Mean Corpuscular Volume 86 fL (80-94); Mean Platelet Volume 8 um3 (7.4-10.4); Red Blood Count 3.82 10^6/ul (4.0-5.4); Red Cell Distribution Width 16 % (10.5-15); White Blood Count 8.4 10^3/ul (3.5-10.8)
--- NOTE | 2017-08-15 20:58 | RAD ---
CLINICAL HISTORY: Left flank pain with reported left renal stones. COMPARISON: Most recent comparison CT examination is dated July 03, 2017 TECHNIQUE: Noncontrast CT examination of the abdomen and pelvis from the lung bases through the initial tuberosities. FINDINGS: VISUALIZED LUNG BASES: There are hypoventilatory changes bilateral lung bases. Otherwise the visualized lung bases are grossly clear. There is no pleural effusion. ABDOMEN AND PELVIS: Evaluation of the solid organs and vasculature is limited without intravenous contrast. The liver, spleen, pancreas and adrenal glands are grossly normal in appearance. The gallbladder is normal. The right kidney is normal in appearance without focal mass, calcification or signs of hydronephrosis. At the lower pole left collecting system there are 2 coarse calcifications adjacent to each other measuring 1 cm and 5 mm and greatest dimension (coronal image 60). These appear to correspond to the conglomeration of stones seen on the prior CT examination. There is no definite renal calcification in the proximal or mid level left ureter. At the level of the distal ureters including the ureterovesical junction there is severe streak artifact caused by bilateral hip prosthesis which limits evaluation at this level. Evaluation of the gastrointestinal tract is limited without oral contrast. The small and large bowel are not distended.The patient's normal appendix is identified in the right lower quadrant measuring 7 mm in diameter with gas in the lumen (axial image 101). There are scattered rectosigmoid diverticula but none exhibit focal inflammatory change characteristic of diverticulitis. There is no gross retroperitoneal or mesenteric lymphadenopathy. There is coarse calcification in the prostate gland. The mildly calcified abdominal aorta and iliac arteries are normal in course and diameter. Degenerative changes include multilevel loss of intervertebral disc height involving the lower thoracic and lumbar spine and multilevel lumbar spine vacuum disc phenomenon. Bilateral hip prostheses are anatomically aligned. The prostheses cause severe streak artifact at the level of the low pelvis which partially obscures evaluation of the distal ureters and ureterovesical junction as well as a portion of the rectosigmoid colon. IMPRESSION: 1. There are 2 lower pole renal stones measuring approximately 1 cm and 5 mm in greatest cephalocaudal dimension. These may correspond to the conglomeration of stones measuring 12 mm in greatest cephalocaudal dimension on the previous CT examination. There are no definite ureteral stones or signs of hydronephrosis, however evaluation of the distal ureters and the ureterovesical junctions are limited by streak artifact caused by the hip prostheses. 2. Scattered diverticula without acute inflammatory change. 3. Additional chronic and degenerative changes described in the body the report.
[2017-08-15 21:10] LABS: BUN/Creatinine Ratio 27.2 (8-20); EGFR African American 104.9 (>60); EGFR Non-African American 81.6 (>60); Total Protein 6.5 g/dL (6.4-8.9)
[2017-08-15 21:11] LABS: Albumin 3.7 g/dL (3.2-5.2); Globulin 2.8 g/dL (2-4); Total Bilirubin 0.3 mg/dL (0.2-1.0)
[2017-08-15 21:12] LABS: Urine Bacteria Absent (Absent); Urine Bilirubin Negative (Negative); Urine Glucose 3+(>=500 mg/dL) (Negative); Urine Nitrite Negative (Negative)
--- NOTE | 2017-08-15 22:05 | ED ---
Arnulfo Gaines Thomas, scribed for Carly Gilmore MD on 08/15/17 at 2003 . Abdominal Pain/Male - HPI Summary HPI Summary: The pt is a 67 y/o M presenting to the ED c/o left flank pain for the last week. The pain waxes and wanes and has progressively worsened over the course of the week. The pain is described as similar to his prior kidney stones. The pain is rated 5/10. The pain does not radiate. The pain is aggravated by nothing and is alleviated by nothing. The patient has treated the pain with acetaminophen and ibuprofen BDC MANAGER. Pt denies vomiting. PMHx includes ulcerative colitis. His last BM was today at 16:00. He has a lithotripsy scheduled with a local urologist on August 30, 2017. - History of Current Complaint Chief Complaint: EDFlankPain Stated Complaint: FLANK PAIN Time Seen by Provider: 08/15/17 19:45 Hx Obtained From: Patient Onset/Duration: Lasting Weeks - 1, Still Present, Worse Since - progressively Timing: Constant Severity Currently: Moderate Pain Intensity: 3 Pain Scale Used: 0-10 Numeric Location: Flank - L Radiates: No Character: Other: - similar to prior kidney stones Aggravating Factor(s): Nothing Alleviating Factor(s): Nothing Associated Signs And Symptoms: Negative: Vomiting - Allergies/Home Medications Allergies/Adverse Reactions: Allergies Allergy/AdvReac Type Severity Reaction Status Date / Time Iodixanol [From Visipaque] Allergy Severe Swelling Verified 08/15/17 19:32 Of Face,Lips,& Throat Azathioprine Allergy Intermediate Abdominal Verified 08/15/17 19:32 Pain Balsalazide Allergy Intermediate Rash Verified 08/15/17 19:32 PMH/Surg Hx/FS Hx/Imm Hx Previously Healthy: No Endocrine/Hematology History: Reports: Hx Diabetes - CONTROLLED WITH MEDICATION TYPE 2 BLD SUGAR CHECKED OFTEN Denies: Hx Sickle Cell Disease Cardiovascular History: Reports: Hx Angina - TWO SEPERATE OCCASSIONS, Hx Auto Implanted Cardiovert Defib, Hx Coronary Artery Disease - STENTX3 2010, Hx Hypercholesterolemia, Hx Hypertension - on meds pt states controlled, Hx Myocardial Infarction, Hx Pacemaker/ICD - pacer icd 2010, Hx Peripheral Vascular Disease - distal limb bilat Comment Only: Other Cardiovascular Problems/Disorders - 2010 ANGIOCATH AND MORE STENTS INSERTED Respiratory History: Reports: Hx Sleep Apnea - DX 2013 Denies: Other Respiratory Problems/Disorders GI History: Reports: Other GI Disorders - ULERCERTIVE COLITIS Denies: Hx Irritable Bowel History: Reports: Hx Kidney Stones - LEFT 28YEARS WITH 2 LITHOTRIPSIES Musculoskeletal History: Reports: Hx Arthritis - OSTEO GENERALIZED, Other Musculoskeletal History - 2 HIPS REPLACEMENTS 2006, 2010 Sensory History: Reports: Hx Contacts or Glasses - GLASSES, Hx Hearing Aid - BILAT Opthamlomology History: Reports: Hx Contacts or Glasses - GLASSES Neurological History: Denies: Other Neuro Impairments/Disorders - Cancer History Hx Chemotherapy: No - Surgical History Surgery Procedure, Year, and Place: 2001 - HEART ATTACK INITIAL STENTS (3). 2006 - HIP RIGHT RESURFACING [place] DR. DANG. 2010 - HIP LEFT RESURFACING. 2009 - FINGERS DISTAL FUSING BILAT INDEX. 2011 - LITHOTRIPSY. 2010 - PACEMAKER. STENTS AT [place], AND PACEMAKER IN [place]. SQUAMOUS CELL [place] DR. LEWIS OFFICE Hx Anesthesia Reactions: No - Immunization History Date of Tetanus Vaccine: up to date per pt. Infectious Disease History: No Infectious Disease History: Denies: Hx Clostridium Difficile, Hx of Known/Suspected MRSA, Hx Shingles, Hx Tuberculosis, History Other Infectious Disease, Traveled Outside the [place] in Last 30 Days - Family History Known Family History: Positive: Cardiac Disease - mother dec. of [place] @ 65, grandmother dec of [place] in 40s-50s - Social History Alcohol Use: Occasionally Alcohol Amount: 3-2 WEEKLY BEER Substance Use Type: Reports: None Hx Tobacco Use: No Smoking Status (MU): Never Smoked Tobacco Review of Systems Negative: Fever Positive: Abdominal Pain - L. Negative: Vomiting All Other Systems Reviewed And Are Negative: Yes Physical Exam - Summary Physical Exam Summary: VITAL SIGNS: Reviewed. GENERAL: Patient is a well-developed and nourished male who is lying comfortable in the stretcher. Patient is not in any acute respiratory distress. HEAD AND FACE: No signs of trauma. No ecchymosis, hematomas or skull depressions. No sinus tenderness. EYES: PERRLA, EOMI x 2, No injected conjunctiva, no nystagmus. EARS: Hearing grossly intact. Ear canals and tympanic membranes are within normal limits. MOUTH: Oropharynx within normal limits. NECK: Supple, trachea is midline, no adenopathy, no JVD, no carotid bruit, no c- spine tenderness, neck with full ROM. CHEST: Symmetric, no tenderness at palpation LUNGS: Clear to auscultation bilaterally. No wheezing or crackles. CVS: Regular rate and rhythm, S1 and S2 present, no murmurs or gallops appreciated. ABDOMEN: Soft, non-tender. No signs of distention. No rebound no guarding, and no masses palpated. Bowel sounds are normal. BACK: There is no CVA tenderness. EXTREMITIES: FROM in all major joints, no edema, no cyanosis or clubbing. NEURO: Alert and oriented x 3. No acute neurological deficits. Speech is normal and follows commands. SKIN: Dry and warm Triage Information Reviewed: Yes Vital Signs On Initial Exam: Initial Vitals Temp Pulse Resp BP Pulse Ox 98.1 F 73 14 124/75 98 08/15/17 19:29 08/15/17 19:29 08/15/17 19:29 08/15/17 19:29 08/15/17 19:29 Vital Signs Reviewed: Yes Diagnostics - Vital Signs Vital Signs Temp Pulse Resp BP Pulse Ox 08/15/17 20:00 69 98 08/15/17 19:46 70 97 08/15/17 19:43 135/78 08/15/17 19:29 98.1 F 73 14 124/75 98 - Laboratory Lab Results: Lab Results 08/15/17 08/15/17 08/15/17 Range/Units 20:45 20:45 20:45 WBC 8.4 (3.5-10.8) 10^3/ul RBC 3.82 L (4.0-5.4) 10^6/ul Hgb 11.1 L (14.0-18.0) g/dl Hct 33 L (42-52) % MCV 86 (80-94) fL MCH 29 (27-31) pg MCHC 34 (31-36) g/dl RDW 16 H (10.5-15) % Plt Count 212 (150-450) 10^3/ul MPV 8 (7.4-10.4) um3 Neut % (Auto) 67.5 (38-83) % Lymph % (Auto) 16.0 L (25-47) % [place] % (Auto) 14.0 H (1-9) % Eos % (Auto) 1.7 (0-6) % Baso % (Auto) 0.8 (0-2) % Absolute Neuts (auto) 5.7 (1.5-7.7) 10^3/ul Absolute Lymphs (auto) 1.3 (1.0-4.8) 10^3/ul Absolute Monos (auto) 1.2 H (0-0.8) 10^3/ul Absolute Eos (auto) 0.1 (0-0.6) 10^3/ul Absolute Basos (auto) 0.1 (0-0.2) 10^3/ul Absolute Nucleated RBC 0 10^3/ul Nucleated RBC % 0 Sodium 134 (133-145) mmol/L Potassium 4.0 (3.5-5.0) mmol/L Chloride 103 (101-111) mmol/L Carbon Dioxide 24 (22-32) mmol/L Anion Gap 7 (2-11) mmol/L BUN 25 H (6-24) mg/dL Creatinine 0.92 (0.67-1.17) mg/dL Est GFR ( Amer) 104.9 (>60) Est GFR (Non-Af Amer) 81.6 (>60) BUN/Creatinine Ratio 27.2 H (8-20) Glucose 177 H (70-100) mg/dL Calcium 9.0 (8.6-10.3) mg/dL Total Bilirubin 0.30 (0.2-1.0) mg/dL AST 22 (13-39) U/L ALT 20 (7-52) U/L Alkaline Phosphatase 53 (34-104) U/L Total Protein 6.5 (6.4-8.9) g/dL Albumin 3.7 (3.2-5.2) g/dL Globulin 2.8 (2-4) g/dL Albumin/Globulin Ratio 1.3 (1-3) Urine Color Yellow Urine Appearance Clear Urine pH 5.0 (5-9) Ur Specific [place] 1.021 (1.010-1.030) Urine Protein Negative (Negative) Urine Ketones Negative (Negative) Urine Blood 1+ H (Negative) Urine Nitrate Negative (Negative) Urine Bilirubin Negative (Negative) Urine Urobilinogen Negative (Negative) Ur Leukocyte Esterase Negative (Negative) Urine WBC (Auto) Trace(0-5/hpf) (Absent) Urine RBC (Auto) 1+(3-5/hpf) H (Absent) Urine Bacteria Absent (Absent) Urine Glucose 3+(>=500 mg/dl) H (Negative) Result Diagrams: 08/15/17 20:45 08/15/17 20:45 Lab Statement: Any lab studies that have been ordered have been reviewed, and results considered in the medical decision making process. - CT CT Abd/Pel CT Interpretation: Positive (See Comments) - 1. There are 2 lower pole renal stones measuring approximately 1 cm and 5 mm in greatest cephalocaudal dimension. These may correspond to the conglomeration of stones measuring 12 mm in greatest cephalocaudal dimension on the previous CT examination. There are no definite ureteral stones or signs of hydronephrosis, however evaluation of the distal ureters and the ureterovesical junctions are limited by streak artifact caused by the hip prostheses. 2. Scattered diverticula without acute inflammatory change. 3. Additional chronic and degenerative changes described in the body the report. ED provider reviewed this report and agrees. CT Interpretation Completed By: Radiologist Re-Evaluation - Re-Evaluation First Eval Re-Evaluation Time: 21:51 Change: Improved Comment: The patient feels better and is pain free at this time. Abdominal Pain Fem Course/Dx - Course Assessment/Plan: The pt is a 67 y/o M presenting to the ED c/o left flank pain for the last week. The pain waxes and wanes and has progressively worsened over the course of the week. The pain is described as similar to his prior kidney stones. The pain is rated 5/10. The pain does not radiate. The pain is aggravated by nothing and is alleviated by nothing. The patient has treated the pain with acetaminophen and ibuprofen BDC MANAGER. Pt denies vomiting. PMHx includes ulcerative colitis. His last BM was today at 16:00. He has a lithotripsy scheduled with a local urologist on August 30, 2017. The patient has renal calculi on the left side without hydronephrosis or obstruction. This does not explain the pain. The pain could possibly be due to muscle pain. The patient will be discharged home with Percocet to follow up with his urologist tomorrow. - Diagnoses Provider Diagnoses: Left back pain, Nephrolithiasis Discharge - Discharge Plan Condition: Stable Disposition: HOME Prescriptions: oxyCODONE/Acetamin 5/325 MG* [Percocet 5/325 TAB*] 1 tab PO Q6H PRN #20 tab MDD 4 PRN Reason: Pain - Moderate Oxycodone/ASA 5/325 (NF) [Percodan 5/325 (NF)] 1 tab PO Q6HR PRN #20 tab PRN Reason: Pain Oxycodone/ASA 5/325 (NF) [Percodan 5/325 (NF)] 1 tab PO Q6HR PRN #20 tab PRN Reason: Pain - Moderate Patient Education Materials: Kidney Stones (ED) Referrals: Boni Gutierrez MD [Primary Care Provider] - If Needed Teddy Thomas MD [Medical Doctor] - 1 Day Additional Instructions: Follow up with Dr. Thoams tomorrow. The documentation as recorded by the Arnulfo garnica Thomas accurately reflects the service I personally performed and the decisions made by Mando rogers Abdul, MD.
[2017-08-16 00:46] VITALS: BP 115/70
== END 2017-08-15 23:05 | disposition home or self-care (01) ==
LOC: ED 19:24
DX: M54.9 Dorsalgia, unspecified (principal); N20.0 Calculus of kidney; E11.9 Type 2 diabetes mellitus without complications; I25.10 Atherosclerotic heart disease of native coronary artery without angina pectoris; E78.00 Pure hypercholesterolemia, unspecified; I10 Essential (primary) hypertension; I25.2 Old myocardial infarction
CPT/HCPCS: 36415; 74176; 80053; 81003; 81015; 85025; 87086; 96360; 96374; 96375; 99284; J2270; J2405

== ENCOUNTER 2017-08-30 08:57 | Day surgery (SDC) | payer MEDICARE, BC ==
--- NOTE | 2017-08-26 20:03 | HP ---
CC: Dr. Gutierrez; Dr. aShu * ADMITTING HISTORY AND PHYSICAL: DATE OF ADMISSION: 08/30/17 ADMITTING DIAGNOSES: 1. Left flank pain. 2. Left renal calculus. PLANNED PROCEDURE: Shockwave lithotripsy of left renal calculus. SURGEON: Dr. Thomas. HISTORY OF PRESENT ILLNESS: Parth Santoyo is a 67-year-old gentleman with a history of recurrent bilateral renal calculi. He has had increasing left flank discomfort and a recent ultrasound had shown an approximately 1.5 cm calculus in the left kidney. PAST MEDICAL HISTORY: Significant for: 1. Ischemic cardiomyopathy. 2. Coronary artery disease. 3. Ulcerative colitis. 4. Sleep apnea. MEDICATIONS ON ADMISSION: 1. Losartan potassium 50 mg 2 tablets daily. 2. Metoprolol 12.5 mg daily. 3. Metformin 1000 mg twice a day. 4. Atorvastatin 20 mg daily. 5. Apriso 0.375 g 2 capsules t.i.d. 6. Glipizide 10 mg twice a day. 7. Potassium citrate 20 mEq twice a day. 8. Aspirin 81 mg daily. 9. Allopurinol 300 mg daily. ALLERGIES: BALSALAZIDE and AZATHIOPRINE. He is also status post implantation of AICD device. PHYSICAL EXAMINATION GENERAL: Reveals a pleasant elderly gentleman. VITAL SIGNS: Blood pressure is 110/70, pulse 59 per minute, oxygen saturation 99% on room air. LUNGS: Clear bilaterally. CARDIOVASCULAR: Regular rate and rhythm. S1, S2. ABDOMEN: Soft with mild left flank tenderness. IMPRESSION: A 67-year-old gentleman with increasing left flank discomfort secondary to a non-obstructing calculus in the left kidney. Planned procedure is shockwave lithotripsy of the left renal calculus. I have discussed the procedure in detail including possible risks of bleeding, infection, possible injury to the kidney, and incomplete fragmentation. He understands and wishes to proceed as planned. PLAN: Shockwave lithotripsy of left renal calculus. [id number]/[facility] #: [id number] [facility]
[~2017-08-30 08:57] MED LIST changes: +NS 0.9% 1000 ML* 1,000 ML IV SCH
[2017-08-30] MEDS ORDERED: cefTRIAXone(*) 2 GM ADDV.VIAL IVPB ONE (08:58)
[2017-08-30] MEDS ORDERED: Buffered Lidocaine 0.9% SYRIN* 5 ML/SYR SYRINGE ONE (08:58)
--- NOTE | 2017-08-30 09:45 | RAD ---
INDICATION: The patient is status post left shockwave lithotripsy COMPARISON: Most recent comparison examination is dated August 11, 2017 TECHNIQUE: 2 views the abdomen were obtained. FINDINGS: At the expected location of the left renal lower pole there are 2 clusters of calcification measuring 9 5 mm in greatest AP dimension. This is essentially unchanged from the previous KUB. There are no solid calcifications overlying the expected lower dictation of the right collecting system. No large new calcifications are seen overlying the expected course of either ureter. The patient's hip prostheses are anatomically aligned in the AP projection. IMPRESSION: STABLE LEFT LOWER POLE RENAL CALCULI DESCRIBED ABOVE.
[2017-08-30] MEDS ORDERED: Midazolam* 1 MG/ML 2 ML VIAL (2 MG) ONE ×2 (10:34→11:10)
[2017-08-30] MEDS ORDERED: fentaNYL* 50 MCG/ML 2 ML VIAL (100 MCG VIAL) ONE (10:34)
--- OUTSIDE RECORDS SUMMARY | 2017-08-30 10:45 | XMS REPORT ---
:1950 External Reference #:[id number] [facility] Address [address] [address] Phone [phone] Care Team Providers Name Role Phone Raheel Carreno MD Care Team Information Freight Sorter Unavailable Boni Gutierrez MD Primary Care Physician Unavailable Payers Type Date Identification Numbers Payment Provider Subscriber Medicare Primary Policy Number: [id number] Medicare Pravin Portillo PayID: [id number] [address] [place] [address] [facility] Policy Number: [id number] [facility] Pravin Portillo PayID: [id number] [address] [place] [address] Problems Date Description Provider Status Onset: 10/12/2013 Coronary arteriosclerosis Joby Sahu M.D. Active Onset: 10/12/2013 Primary cardiomyopathy Joby Sahu M.D. Active Onset: 10/12/2013 Paroxysmal tachycardia Joby Sahu M.D. Active Onset: 01/17/2014 Automatic implantable cardiac Joby Sahu M.D. Active defibrillator in situ Onset: 01/17/2014 Chronic ischemic heart disease Joby Sahu M.D. Active Onset: 01/17/2014 Preoperative cardiovascular Joby Sahu M.D. Active examination Onset: 06/11/2016 Obstructive sleep apnea syndrome Meggan Soto MD Active Onset: 07/07/2016 Central sleep apnea syndrome Meggan Soto MD Active Onset: 05/26/2017 Peripheral vascular disease Edwar Diaz M.D. Active Onset: 05/26/2017 Chronic pelvic pain without obvious Edwar India Diaz M.D. 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 Use Never Smoked Cigarettes ETOH Use Denies alcohol use Smoking Patient has never smoked Recreational Drug Use Denies Drug Use Daily Caffeine Consumes on average 2 cups of regular coffee per day Daily Caffeine Consumes on average 1 cup of hot tea per day Exercise Type/Frequency 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 Brand, day M.D. Metoprolol 07/07/ Active Tablets ER 25mg 45tab 1/2 by Joby Succinate ER 2011 24HR s mouth every D. Brand, day M.D. Metformin HCL / Active Tablets 1000mg 180ta 1 tablet po Unknown 0000 bs b.i.d Atorvastatin / Active Tablets 20mg 90tab take 1 Joby Calcium 0000 s tablet at D. Brand, bedtime M.D. Apriso / Active Caps ER 0.375gm 2 cap po Unknown 0000 24HR t.i.d prn Co Q-10 / Active 60mg 1 po qd Unknown 0000 Vitamin D3 High / Active Capsules 1000Iu 2 cap po Unknown Potency 0000 Am, 1 cap po PM Nitrostat / Active Tablets 0.4mg 25tab one sl Joby 0000 Sub s q5min up to D. Brand, 3 doses as M.D. needed Zolpidem / Active Tablets 10mg 20tab 1/2-1 tab Unknown Tartrate 0000 s po qhs prn Glipizide / Active Tablets 10mg 60tab 1 tablet po Unknown 0000 s twice daily Am/PM Potassium / Active Tablets ER 10Meq 2 po tid or Martha, Citrate ER 0000 (1080 mg) as directed MD Teddy Aspirin / Active Tablets 81mg 1 by mouth Unknown 0000 every day Hydrocortisone / Active Enema 100mg/60M as needed Miguel Ángel, 0000 L MD Atul Amoxicillin / Active Capsules 500mg prior to Unknown 0000 dental work Allopurinol / Active Tablets 300mg 1 by mouth Unknown 0000 every day Fish Oil / Active Capsules 2000mg 2 by mouth Unknown 0000 bid Bipap / Active Device using at Unknown 0000 night Prednisone / Active Tablets 10mg Ulcerative Miguel Ángel colitis MD Atul flare-up. Tapering dose. Currently 25 mg per day 08/03/17 Aspirin 10/12/ Hx Tablets 325mg 1 po qd Joby 2013 D. Luis Alberto, .D. 2013 Clopidogrel 07/07/ Hx Tablets 75mg 90tab 1 po qd Joby 2011 DNata Sahu, .D. 2013 Losartan 07/07/ Hx Tablets 100mg 90tab 1/2 tab po [place] Potassium 2011 yadira DNata Sahu, D. 2013 Aspirin / Hx Tablets 81mg 1 po qd Unknown 0000 - 2013 Zetia / Hx Tablets 10mg 30tab 1 po qd Unknown 0000 - s 2015 Fish Oil / Hx Capsules 2Gram 1 po qd Unknown 0000 - 2013 Melatonin / Hx Tablets 5mg 1 po qhs Unknown Maximum Strength 0000 - prn 2015 Amoxicillin / Hx 500mg 4 tablet po Unknown Trihydrate 0000 - prior to 09/11/ dental work 2013 Gabapentin / Hx Capsules 100mg 240ca prn for Unknown 0000 - ps neuropathy 02/28/ pain 2013 Uceris / Hx 9mg 1 tablet po Unknown 0000 - daily ( 08/03/ taken twice 2017 daily when neccesary) Mesalamine / Hx Enema 4gm as needed Unknown 0000 - 2016 Medications Administered in Office Medication Date Status Form Strength Qnty SIG Indications Ordering Provider Technetium TC Administered Injection Johnnie S. 99M 016 DO Jamie Tetrofosmin, FACC Per Unit Dose Up To 40 Millicuries Immunizations CPT Code Status Date Vaccine Lot # [id number] Given 06/24/2016 Influenza Virus Vaccine, Quadrivalent, Split, Preservative Free Vital Signs Date Vital Result Comment 08/03/2017 Height 68 inches 5'8" Weight 170.12 lb with shoes Heart Rate 64 /min BP Systolic Sitting 144 mmHg Lue reg cuff BP Diastolic Sitting 88 mmHg Lue reg cuff Respiratory Rate 22 /min O2 % BldC Oximetry 98 % On Ra BMI (Body Mass Index) 25.9 kg/m2 06/14/2017 Height 68 inches 5'8" Weight 187.00 lb Heart Rate 56 /min BP Systolic Sitting 122 mmHg BP Diastolic Sitting 78 mmHg Pain Level 2 BMI (Body Mass Index) 28.4 kg/m2 06/01/2017 Height 68 inches 5'8" Weight 187.00 lb w/ shoes Heart Rate 60 /min irreg BP Systolic Sitting 114 mmHg Rue, reg cuff BP Diastolic Sitting 70 mmHg Rue, reg cuff Respiratory Rate 16 /min O2 % BldC Oximetry 97 % on Ra BMI (Body Mass Index) 28.4 kg/m2 05/26/2017 Height 68 inches 5'8" Weight 184.00 lb Heart Rate 70 /min BP Systolic Sitting 130 mmHg lue reg cuff BP Diastolic Sitting 76 mmHg lue reg cuff Respiratory Rate 16 /min BMI (Body Mass Index) 28.0 kg/m2 02/26/2017 Height 66.25 inches 5'6.25" Weight 187.00 lb no shoes Heart Rate 56 /min BP Systolic Sitting 138 mmHg Rue reg cuff BP Diastolic Sitting 88 mmHg Rue reg cuff BP Systolic Standing 136 mmHg Rue reg cuff BP Diastolic Standing 82 mmHg Rue reg cuff Respiratory Rate 15 /min BMI (Body Mass Index) 30.0 kg/m2 Ejection Fraction 35-40% 10/15/2016-echo 01/19/2017 Height 68 inches 5'8" Weight 184.00 lb Heart Rate 55 /min BP Systolic Sitting 136 mmHg BP Diastolic Sitting 72 mmHg Respiratory Rate 14 /min O2 % BldC Oximetry 98 % BMI (Body Mass Index) 28.0 kg/m2 10/19/2016 Height 68 inches 5'8" Weight 186.00 lb Heart Rate 42 /min BP Systolic Sitting 142 mmHg BP Diastolic Sitting 78 mmHg Respiratory Rate 14 /min O2 % BldC Oximetry 98 % BMI (Body Mass Index) 28.3 kg/m2 09/01/2016 Height 68 inches 5'8" Weight 188.00 lb Heart Rate 64 /min BP Systolic Sitting 138 mmHg BP Diastolic Sitting 82 mmHg Respiratory Rate 16 /min O2 % BldC Oximetry 98 % BMI (Body Mass Index) 28.6 kg/m2 08/28/2016 Height 68 inches 5'8" Weight 191.00 lb with shoes Heart Rate 60 /min BP Systolic Sitting 114 mmHg Lue reg cuff BP Diastolic Sitting 64 mmHg Lue reg cuff BP Systolic Standing 124 mmHg Lue reg cuff BP Diastolic Standing 70 mmHg Lue reg cuff Respiratory Rate 16 /min BMI (Body Mass Index) 29.0 kg/m2 Ejection Fraction 60% date 05/06/2005 ECHO 07/14/2016 Height 68 inches 5'8" Weight 191.00 lb Heart Rate 66 /min BP Systolic Sitting 120 mmHg right arm, reg cuff BP Diastolic Sitting 72 mmHg right arm, reg cuff BP Systolic Standing 118 mmHg right arm, reg cuff BP Diastolic Standing 76 mmHg right arm, reg cuff Respiratory Rate 20 /min BMI (Body Mass Index) 29.0 kg/m2 Ejection Fraction 51% 02/26/14 Nem 07/07/2016 Height 68 inches 5'8" Weight 185.12 lb Heart Rate 56 /min BP Systolic 130 mmHg BP Diastolic 80 mmHg Respiratory Rate 14 /min O2 % BldC Oximetry 98 % BMI (Body Mass Index) 28.1 kg/m2 06/11/2016 Height 68 inches 5'8" Weight 185.12 lb Heart Rate 56 /min BP Systolic Sitting 134 mmHg BP Diastolic Sitting 78 mmHg Respiratory Rate 16 /min O2 % BldC Oximetry 97 % BMI (Body Mass Index) 28.1 kg/m2 Neck Circumference in inches 16.5 12/24/2015 Height 68 inches 5'8" Heart Rate 55 /min regular BP Systolic 149 mmHg left arm wrist cuff BP Diastolic 97 mmHg left arm wrist cuff BP Systolic Sitting 128 mmHg left arm office cuff BP Diastolic Sitting 62 mmHg left arm office cuff Respiratory Rate 18 /min 12/12/2015 Height 68 inches 5'8" Weight 8.94 lb with shoes Heart Rate 60 /min irregular BP Systolic Sitting 140 mmHg LA reg cuff BP Diastolic Sitting 92 mmHg LA reg cuff BP Systolic Standing 140 mmHg LA reg cuff BP Diastolic Standing 92 mmHg LA reg cuff BP Systolic Lying Down 140 mmHg BP Diastolic Lying Down 80 mmHg Respiratory Rate 16 /min BMI (Body Mass Index) 1.4 kg/m2 Ejection Fraction 60% 05/06/05 09/12/2014 Height 68 inches 5'8" Weight 193.00 lb with out shoes Heart Rate 56 /min BP Systolic Sitting 140 mmHg Ra reg cuff BP Diastolic Sitting 90 mmHg Ra reg cuff BP Systolic Standing 142 mmHg Ra reg cuff BP Diastolic Standing 90 mmHg Ra reg cuff Respiratory Rate 16 /min BMI (Body Mass Index) 29.3 kg/m2 03/08/2014 Height 58.25 inches 4'10.25" Weight 176.00 lb Heart Rate 52 /min BP Systolic Sitting 104 mmHg Ra reg cuff BP Diastolic Sitting 68 mmHg Ra reg cuff BP Systolic Standing 108 mmHg Ra BP Diastolic Standing 74 mmHg Ra Respiratory Rate 16 /min BMI (Body Mass Index) 36.5 kg/m2 01/17/2014 Height 58.25 inches 4'10.25" Weight 188.00 lb Heart Rate 60 /min BP Systolic Sitting 128 mmHg Ra reg cuff BP Diastolic Sitting 80 mmHg Ra reg cuff BP Systolic Standing 128 mmHg Ra BP Diastolic Standing 86 mmHg Ra Respiratory Rate 16 /min BMI (Body Mass Index) 39.0 kg/m2 10/12/2013 Height 68 inches 5'8" Weight 191.00 lb Heart Rate 56 /min BP Systolic Sitting 120 mmHg Ra reg cuff BP Diastolic Sitting 78 mmHg Ra reg cuff BP Systolic Standing 122 mmHg Ra BP Diastolic Standing 80 mmHg Ra Respiratory Rate 16 /min BMI (Body Mass Index) 29.0 kg/m2 Results Test Date Test Result H/L Range Note Laboratory test 06/22/2017 Surgical Pathology SEE RESULT BELOW 1 finding Laboratory test 06/22/2017 Point of Care 172 mg/dL High 70-100 2 finding Glucose Istat BUN/Crea/Egfr/V 05/26/2017 Poc Bun Mainct 21 mg/dL High 9-18 Mainct Poc Crea Mainct 1.1 mg/dL High 0.6-0.9 GFR Non- MCT 66.4 >60 GFR Mainct 85.4 >60 3 Laboratory test finding 05/26/2017 Point of Care Glucose 62 mg/dL Low 70- 100 4 Laboratory test finding 12/16/2016 Point of Care Glucose 138 mg/dL High 74 -106 5 Basic Metabolic Panel 12/14/2016 Sodium 139 mmol/L 133-145 Potassium 4.2 mmol/L 3.5-5.0 Chloride 103 mmol/L 101-111 Co2 Carbon Dioxide 30 mmol/L 22-32 Anion Gap 6 mmol/L 2-11 Glucose 90 mg/dL 70-100 Blood Urea Nitrogen 23 mg/dL 6-24 Creatinine 1.23 mg/dL High 0.67-1.17 BUN/Creatinine Ratio 18.7 8-20 Calcium 9.6 mg/dL 8.6-10.3 Egfr Non- 58.5 >60 Egfr 75.3 >60 6 CBC Auto Diff 12/14/2016 White Blood Count 11.0 10^3/uL High 3.5-10.8 Red Blood Count 4.71 10^6/uL 4.0-5.4 Hemoglobin 13.7 g/dL Low 14.0-18.0 Hematocrit 42 % 42-52 Mean Corpuscular Volume 89 fL 80-94 Mean Corpuscular Hemoglobin 29 pg 27-31 Mean Corpuscular HGB Conc 33 g/dL 31-36 Red Cell Distribution Width 14 % 10.5-15 Platelet Count 167 10^3/uL 150-450 Mean Platelet Volume 10 um3 7.4-10.4 Abs Neutrophils 6.9 10^3/uL 1.5-7.7 Abs Lymphocytes 2.5 10^3/uL 1.0-4.8 Abs Monocytes 1.1 10^3/uL High 0-0.8 Abs Eosinophils 0.4 10^3/uL 0-0.6 Abs Basophils 0.1 10^3/uL 0-0.2 Abs Nucleated RBC 0 10^3/uL Granulocyte % 62.9 % 38-83 Lymphocyte % 22.7 % Low 25-47 Monocyte % 9.7 % High 1-9 Eosinophil % 3.5 % 0-6 Basophil % 1.2 % 0-2 Nucleated Red Blood Cells % 0 Laboratory test finding 03/08/2015 Surgical Pathology SEE RESULT BELOW 7 Laboratory test finding 04/19/2013 PSA Screening 0.49 ng/mL 0-4.0 8 Basic Metabolic Panel 04/19/2013 Sodium 137 mmol/L 133-145 Potassium 3.5 mmol/L 3.5-5.0 Chloride 108 mmol/L 101-111 Co2 Carbon Dioxide 24.0 mmol/L 22-32 Anion Gap 5.0 mmol/L 2-11 Glucose 177 mg/dL High 70-100 Blood Urea Nitrogen 17 mg/dL 6-24 Creatinine 0.90 mg/dL 0.50-1.40 BUN/Creatinine Ratio 18.9 8-20 Calcium 9.6 mg/dL 8.1-9.9 Egfr Non- 84.7 >60 Egfr 108.9 >60 9 Inr/Protime 04/19/2013 Inr 0.90 0.87-0.97 CBC No Diff 04/19/2013 White Blood Count 10.3 10^3/uL 4.8-10.8 Red Blood Count 4.59 10^6/uL 4.0-5.4 Hemoglobin 13.2 g/dL Low 14.0-18.0 Hematocrit 39 % Low 42-52 Mean Corpuscular Volume 85 fL 80-94 Mean Corpuscular Hemoglobin 29 pg 27-31 Mean Corpuscular HGB Conc 34 g/dL 31-36 Red Cell Distribution Width 15 % 10.5-15 Platelet Count 150 10^3/uL 150-450 Mean Platelet Volume 9 um3 7.4-10.4 1 SEE RESULT BELOW Name: PRAVIN PORTILLO JR : [address]: Ry Al MD Acct: [id number] Unit: [id number] AGE: 67 Location: OR Re06/22/17 SEX: M Status: DEIRDRE BREWER SPEC: [id number] SONAL: 06/22/[address] [facility] [address]: Ry Al MD REQ: [id number] RECD: 06/22/17 STATUS: YANIV HOLLOWAY DR: Boni Castillo MD _ ORDERED: FS 1ST PER SPEC, FS ADD PER SPEC/2, LEVEL 4 FINAL DIAGNOSIS Skin, right upper cutaneous lip, excision: -- Scar, excised. -- No evidence of residual squamous cell carcinoma. COMMENT: The previous lesion at this site ([id number]) has been completely excised. PATHOLOGY SURGICAL CONSULT Frozen section (FS)/Touch Prep (TP)/Gross Consult (GC) FS) Skin, right upper cutaneous lip, re-excision: Scar excised. (EP) No evidence of residual squamous cell carcinoma. 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 There is a suture attached to one long axis which designates the 12:00 superior apex margin. The specimen is inked as follows : 9:00 half black, 3:00 half blue and 12:00 tip green, serially sectioned from 12:00 to 6 :00 and entirely submitted for frozen section microscopy. The frozen section residue is submitted in cassettes FSA through [facility] to include ellipse ends in cassette FSA. CONTINUED ON NEXT PAGE * ML=Testing performed at Main Lab DEPARTMENT OF PATHOLOGY, [address] [place] [address] Paul Dimas M.D. Director RIO # [id number] RUN DATE: 06/23/17 [facility] LAB LIVE PAGE 2 Patient: PRAVIN PORTILLO JR [id number] (Continued) GROSS DESCRIPTION (Continued) Signed (signature on file) Suzanne Novoa MD 1121 END OF REPORT * ML=Testing performed at Main Lab DEPARTMENT OF PATHOLOGY, [address] [place] [address] Paul Dimas M.D. Director [facility] # [id number] 2 Public Safety Officer: [id number] 3 Because ethnic data is not always readily available, this report includes an eGFR for both -Americans and non- Americans. The National Kidney Disease Education Program (NKDEP) does not endorse the use of the MDRD equation for patients that are not between the ages of 18 and 70, are , have extremes of body size, muscle mass, or nutritional status, or are non- or non-. According to the National Kidney Foundation, irrespective of diagnosis, the stage of the disease is based on the level of kidney function: Stage Description GFR(mL/min/1.73 m(2)) 1 Kidney damage with normal or decreased GFR 90 2 Kidney damage with mild decrease in GFR 60-89 3 Moderate decrease in GFR 30-59 4 Severe decrease in GFR 15-29 5 Kidney failure <15 (or dialysis) 4 Public Safety Officer: [id number] 5 Public Safety Officer: [id number] CLARA GARNER 6 Because ethnic data is not always readily available, this report includes an eGFR for both -Americans and non- Americans. The National Kidney Disease Education Program (NKDEP) does not endorse the use of the MDRD equation for patients that are not between the ages of 18 and 70, are , have extremes of body size, muscle mass, or nutritional status, or are non- or non-. According to the National Kidney Foundation, irrespective of diagnosis, the stage of the disease is based on the level of kidney function: Stage Description GFR(mL/min/1.73 m(2)) 1 Kidney damage with normal or decreased GFR 90 2 Kidney damage with mild decrease in GFR 60-89 3 Moderate decrease in GFR 30-59 4 Severe decrease in GFR 15-29 5 Kidney failure <15 (or dialysis) 7 SEE RESULT BELOW Name: PRAVIN PORTILLO : [address]: Atul Del Rosario MD Acct: [id number] Unit: [id number] AGE: 64 Location: ENDO Re03/08/15 SEX: M Status: REG REF SPEC: [id number] SONAL: 03/08/15-[address] [facility] [address]: Atul Del Rosario MD REQ: [id number] RECD: 03/08/15 STATUS: YANIV HOLLOWAY DR: Barney Gutierrez MD _ ORDERED: LEVEL IV/7 FINAL DIAGNOSIS 1. Colon, right, biopsy: -- Colonic mucosa with no significant pathologic abnormalities. 2. Colon, transverse, biopsy: -- Colonic mucosa with no significant pathologic abnormalities. 3. Colon, descending, biopsy: -- Colonic mucosa with no significant pathologic abnormalities. 4. Colon, sigmoid, biopsy: -- Chronic active colitis. -- Negative for dysplasia. -- No granulomata seen. 5. Colon, distal sigmoid at 22 cm, biopsy: -- Tubular adenoma. -- No high grade dysplasia or malignancy. 6. Colon, distal sigmoid, biopsy: -- Chronic active colitis. -- Negative for dysplasia. -- No granulomata seen. 7. Colon, rectum, biopsy: -- Chronic active colitis. -- Negative for dysplasia. -- No granulomata seen. CONTINUED ON NEXT PAGE * ML=Testing performed at Main Lab DEPARTMENT OF PATHOLOGY, [address] [place] [address] Paul Dimas M.D. Director CLIA # [id number] RUN DATE: 03/11/15 [facility] LAB LIVE PAGE 2 Patient: DANIELPRAVIN MONTILLA [id number] (Continued) CLINICAL HISTORY (Continued) CLINICAL HISTORY Ulcerative colitis, now with diarrhea, adult onset of diabetes mellitus POST-OPERATIVE DIAGNOSIS Screening colonoscopy to cecum with ease - normal rectum, transverse, and terminal ileum; at 35 erythema, 0-35 erythema, severe 0-25. Diverticulosis, proctosigmoiditis; polyp at 25 cm. GROSS DESCRIPTION 1. The specimen is received in formalin labeled, Biopsies Right Colon, and consists of two bowden irregular soft tissue fragments measuring 0.3 x 0.2 x 0.1 cm and 0.5 x 0.1 x 0.1 cm, which are submitted entirely in one cassette. 2. The specimen is received in formalin labeled, Biopsies Transverse Colon , and consists of two bowden irregular soft tissue fragments measuring 0.2 x 0.2 x 0.1 cm and 1.0 x 0.2 x 0.1 cm, which are submitted entirely in one cassette. 3. The specimen is received in formalin labeled, Biopsies Descending Colon , and consists of a 0.5 x 0.4 x 0.1 cm aggregate of multiple bowden-pink irregular soft tissue fragments, which is submitted entirely in one cassette. 4. The specimen is received in formalin labeled, Biopsies Sigmoid Colon, and consists of two bowden-pink irregular soft tissue fragments measuring 0.2 x 0.1 x 0.1 cm and 0.5 x 0.2 x 0.1 cm, which are submitted entirely in one cassette. 5. The specimen is received in formalin labeled, Biopsies Colon Polyp at Distal Sigmoid at 22 cm, and consists of two bowden-pink irregular soft tissue fragments averaging 0.3 x 0.2 x 0.2 cm, which are submitted entirely in one cassette. 6. The specimen is received in formalin labeled, Biopsies Distal Sigmoid, and consists of a 0.5 x 0.4 x 0.2 cm aggregate of multiple bowden-pink irregular soft tissue fragments, which is submitted entirely in one cassette. 7. The specimen is received in formalin labeled, Biopsies Rectum, and consists of two bowden irregular soft tissue fragments averaging 0.4 x 0.2 x 0.1 cm, which are submitted entirely in one cassette. Signed (signature on file) Suzanne Novoa MD 1424 END OF REPORT * ML=Testing performed at Main Lab DEPARTMENT OF PATHOLOGY, [address] [place] [address] Paul Dimas M.D. Director [facility] # [id number] 8 Serum levels of PSA measured using the [employer] [place] DXI Hybritech immunoassay should not be interpreted as absolute evidence of the presence or absence of disease. The PSA value should be used in conjunction with other pertinent clinical diagnostic procedures. A PSA value in the range of 0.1 to 0.6 ng/ml is indeterminate if being used as an indicator of recurrent or residual disease. The values obtained with different assay methods or kits cannot be used interchangeably. 9 Because ethnic data is not always readily available, this report includes an eGFR for both -Americans and non- Americans. The National Kidney Disease Education Program (NKDEP) does not endorse the use of the MDRD equation for patients that are not between the ages of 18 and 70, are , have extremes of body size, muscle mass, or nutritional status, or are non- or non-. According to the National Kidney Foundation, irrespective of diagnosis, the stage of the disease is based on the level of kidney function: Stage Description GFR(mL/min/1.73 m(2)) 1 Kidney damage with normal or decreased GFR 90 2 Kidney damage with mild decrease in GFR 60-89 3 Moderate decrease in GFR 30-59 4 Severe decrease in GFR 15-29 5 Kidney failure <15 (or dialysis) Procedures Date CPT Code Description Status 07/26/2017 62034 ECHO Transthoracic, Real-Time 2D With Doppler And Color Completed Flow 06/29/2017 59950 Interrogation Implant Cardiovasc Monitor System Incl Completed Analysis Int 06/29/2017 97898 Icd Eval W/Iterative Adjustmnt Single Lead Icd Completed 02/26/2017 72165 EKG Tracing & Interpretation Completed 01/27/2017 13263 Interrogation Implant Cardiovasc Monitor System Incl Completed Analysis Int 01/27/2017 63697 Icd eval w/iterative adjment single lead Icd Completed 10/15/2016 20742 ECHO Transthorasic Realtime 2D W Doppler & Color Completed Flow Hosp 10/13/2016 63100 Interrogation Implant Cardiovasc Monitor System Incl Completed Analysis Int 10/13/2016 57888 Icd eval w/iterative adjment single lead Icd Completed 08/25/2016 77875 Myocardial Perfusion Imaging Tomographic (Spect) Completed Multiple Studies 08/25/2016 67672 Stress Test Completed 08/22/2016 49603 EKG, Interpretation Only Completed 06/23/2016 89197 Polysomnography Sleep Staging 4+ Parameters W/Cpap Completed 06/03/2016 70653 Interrogation Implant Cardiovasc Monitor System Incl Completed Analysis Int 06/03/2016 06987 Icd eval w/iterative adjment single lead Icd Completed 02/12/2016 66655 Interrogation Implant Cardiovasc Monitor System Incl Completed Analysis Int 02/12/2016 25333 Icd eval w/iterative adjment single lead Icd Completed 12/12/2015 83874 EKG Tracing & Interpretation Completed 10/09/2015 72442 Interrogation Implant Cardiovasc Monitor System Incl Completed Analysis Int 10/09/2015 84877 Icd eval w/iterative adjment single lead Icd Completed 04/17/2015 96888 Icd Check Single,Dual Or Multiple In Person W/DR Incl Completed Heart Rhyth 04/17/2015 65208 Interrogation Implant Cardiovasc Monitor System Incl Completed Analysis Int 03/08/2015 Colonoscopy Completed 10/18/2014 99136 Interrogation Implant Cardiovasc Monitor System Incl Completed Analysis Int 10/18/2014 41258 Icd eval w/iterative adjment single lead Icd Completed 06/25/2014 14043 Interrogation Implant Cardiovasc Monitor System Incl Completed Analysis Int 06/25/2014 18046 Icd Check Single,Dual Or Multiple In Person W/DR Incl Completed Heart Rhyth 03/08/2014 11267 EKG Tracing & Interpretation Completed 02/26/2014 79359 Treadmill Interp/Report Only Completed 02/26/2014 27223 Stress Test Supervsn W/Out I/R Completed 01/17/2014 80456 EKG Tracing & Interpretation Completed 01/15/2014 62838 Interrogation Implant Cardiovasc Monitor System Incl Completed Analysis Int 01/15/2014 60932 Icd Check Single,Dual Or Multiple In Person W/DR Incl Completed Heart Rhyth 10/12/2013 72268 EKG Tracing & Interpretation Completed 09/13/2013 62329 Interrogation Implant Cardiovasc Monitor System Incl Completed Analysis Int 09/13/2013 26072 Icd Check Single,Dual Or Multiple In Person W/DR Incl Completed Heart Rhyth 04/27/2013 33521 Interrogation Implant Cardiovasc Monitor System Incl Completed Analysis Int 04/27/2013 39070 Icd Check Single,Dual Or Multiple In Person W/DR Incl Completed Heart Rhyth 10/06/2012 47937 Interrogation Implant Cardiovasc Monitor System Incl Completed Analysis Int 10/06/2012 28499 Icd eval w/iterative adjment single lead Icd Completed 10/06/2012 09074 EKG Tracing & Interpretation Completed 07/07/2012 72302 Icd eval w/iterative adjment single lead Icd Completed Encounters Type Date Location Provider CPT E/M Dx Office Visit 07/05/2017 [facility] [place] [address] K51.80 12:31p Hospitalists KILLIAN Jewell N17.9 N20.0 G47.33 Office Visit 07/04/2017 12:31p [facility], [place], [address] K51.80 Hospitalists Shena N20.0 N17.9 G47.33 Office Visit 07/03/2017 12:30p [facility], [place], [address] K51.80 Hospitalists Shena N17.9 N20.0 G47.33 Office Visit 06/14/2017 1:15p Neurosurgery Services Pamela Carreon PA-C 14889 M48.06 Of [facility] Office Visit 06/01/2017 8:15a [facility] [address] G47.33 Services Of [facility] G47.37 I50.20 Office Visit 05/26/2017 3:30p [facility] Edwar Diaz, 24000 R10.2 Of [facility] M.DNata I73.9 Office Visit 02/26/2017 10:00a [facility] [address] I25.5 [facility] M.D. I25.10 Z95.810 Office Visit 01/19/2017 8:30a [facility] [address] G47.33 Services Of [facility] G47.37 Office Visit 10/19/2016 8:30a [facility] [place] [address] G47.33 Services Of [facility] G47.37 Office Visit 09/01/2016 1:00p Pul[facility] [address] G47.33 Services Of [facility] G47.37 Office Visit 08/28/2016 11:00a [facility] Joby Sahu, 49979 I25.10 [facility] Hero.Thiago R07.9 E11.9 Office Visit 08/22/2016 9:29a [facility], [place], 53040 I25.118 Hospitalists M.DNata E11.9 K51.80 I10 Office Visit 08/21/2016 9:28a [facility], [place], 12968 I25.118 Hospitalists M.DNata I10 E11.9 K51.80 Office Visit 07/14/2016 1:30p [facility] Lucia Sahu, 36769 I42.9 [facility] M.Thiago Z95.810 I10 I47.9 Office Visit 07/07/2016 8:00a [facility] [place] [address] G47.33 Services Of [facility] G47.37 I42.8 Office Visit 06/11/2016 8:45a [facility] [place] [address] G47.33 Services Of [facility] G47.39 R06.83 Office Visit 12/24/2015 9:15a [facility] [place] [address] I10 [facility] Office Visit 12/12/2015 9:00a [facility] 14612 I42.9 [facility] M.DNata Z95.810 I25.10 Office Visit 09/12/2014 10:15a [facility] Thiago Sahu, 05518 414.9 [facility] M.DNata 414.01 Office Visit 03/08/2014 9:15a [facility] Joby BermudezNata Luis Alberto, 14247 414.9 [facility] M.D. 414.01 V45.02 V72.81 Office Visit 02/26/2014 8:55a Health system, 51427 786.50 Assoc, Hospitalists MLeydi 276.8 250.00 401.9 Office Visit 01/17/2014 8:15a [facility] Joby Thiago Sahu, 50819 425.4 [facility] M.Thiago V45.02 414.9 V72.81 Office Visit 10/12/2013 9:45a [facility] Joby AidanNata Luis Alberto, 25174 414.01 [facility] M.DNata 425.4 427.2 Office Visit 10/12/2012 10:15a [facility] Joby AidanNata Luis Alberto, 34805 414.9 [facility] M.Thiago 425.4 427.69 Office Visit 07/29/2012 9:15a [facility] Joby AidanNata Luis Alberto, 16191 414.9 [facility] M.DNata 425.4 427.69 Office Visit 10/28/2006 4:00p Neurosurgery Services Dallin Morrissey, 73234 756.12 Of [facility] Shena 756.11 724.4 Plan of Care Future Appointment(s):08/03/2018 9:00 am - Meggan Soto MD at [facility]08/03/2017 - Meggan Soto MDG47.33 Obstructive sleep apnea (adult) (pediatric)Follow up:1 yearG47.37 Central sleep apnea in conditions classified elsewhere
[2017-08-30] MEDS ORDERED: KETAMINE HCL* 50 MG/ML 10 ML VIAL ONE (11:12)
[2017-08-30] MEDS ORDERED: Ondansetron INJ* 2 MG/ML VIAL IV PRN (11:31)
[2017-08-30] MEDS ORDERED: DiMENhydriNATE IV* 50 MG/ML VIAL IV PUSH PRN (11:31)
[2017-08-30] MEDS ORDERED: HYDROcodone/ACETAMIN 5-325 MG* 1 TAB PO PRN (11:31)
[2017-08-30] MEDS ORDERED: Acetaminophen TAB* 325 MG PO PRN (11:31)
[2017-08-30] MEDS ORDERED: Famotidine IV* 10 MG/ML 2 ML (20 mg) ONE (11:33)
[2017-08-30] MEDS ORDERED: Dexamethasone IV* 4 MG/ML 1 ML (4 MG) ONE (11:33)
[2017-08-30] MEDS ORDERED: Propofol* 10 MG/ML 20 ML BTL IV PUSH ONE (11:33)
[2017-08-30] MEDS ORDERED: Furosemide IV* 10 MG/ML 2 ML VIAL (20 MG) ONE ×2 (11:47)
[2017-08-30 12:30] VITALS: BP 131/73
--- NOTE | 2017-08-31 02:23 | OP ---
CC: Dr. Gutierrez * DATE OF OPERATION: 08/30/17 - [facility] DATE OF : 46 SURGEON: Teddy Thomas MD. ANESTHESIOLOGIST: Dr. Brown. ANESTHESIA: Intravenous sedation. PRE-OP DIAGNOSIS: Left renal calculi. POST-OP DIAGNOSIS: Left renal calculi. OPERATIVE PROCEDURE: Shockwave lithotripsy, left renal calculi. COMPLICATIONS: None. POSTOPERATIVE CONDITION: Stable. INDICATIONS: Parth Santoyo Junior is a 67-year-old gentleman with recurrent bilateral renal calculi. He has had increasing left flank discomfort and is now being brought in for lithotripsy. DESCRIPTION OF PROCEDURE: After administration of intravenous sedation, the patient was placed on the lithotripsy table in supine position. There were 2 calculi in the mid to lower pole area of the left kidney. These were localized using fluoroscopy and shockwave lithotripsy was commenced at a rate of 90 shocks per minute. After the initial 300 shocks, there was a pause in lithotripsy for several minutes in effort to minimize any potential trauma to the kidney. Lithotripsy was then resumed; a total of 2400 shocks were administered. The patient tolerated the procedure satisfactorily and was transferred back to the recovery area in stable condition. [id number]/[facility] #: [id number] MTDD
== END 2017-08-30 13:00 | disposition home or self-care (01) ==
LOC: OR 08:57
PROVIDERS: ATTEND Urology
DX: N20.0 Calculus of kidney (principal); E11.9 Type 2 diabetes mellitus without complications; Z79.84 Long term (current) use of oral hypoglycemic drugs; G47.33 Obstructive sleep apnea (adult) (pediatric); I25.5 Ischemic cardiomyopathy; I25.10 Atherosclerotic heart disease of native coronary artery without angina pectoris; Z95.810 Presence of automatic (implantable) cardiac defibrillator; Z79.899 Other long term (current) drug therapy; R06.02 Shortness of breath; I47.2 Ventricular tachycardia
CPT/HCPCS: 74000; J0696; J1100; J1940; J2250; J2704; J3010

== ENCOUNTER 2021-11-13 16:24 | Observation (INO) ==
[2021-11-13 18:48] LABS: ABS Basophils 0.1 10^3/ul (0-0.2); ABS Eosinophils 0.1 10^3/ul (0-0.6); ABS Lymphocytes 1.2 10^3/ul (1.0-4.8); ABS Monocytes 1.5 10^3/ul (0-0.8); ABS Neutrophils 9.5 10^3/ul (1.5-7.7); Eosinophil % 0.5 %; Hematocrit 33 % (42-52); Hemoglobin 11.3 g/dL (14.0-18.0); Lymphocyte % 9.5 %; Mean Corpuscular HGB Conc 34 g/dL (31-36); Mean Corpuscular Hemoglobin 29 pg (27-31); Mean Corpuscular Volume 87 fL (80-94); Mean Platelet Volume 8.8 fL (7.4-10.4); Platelet Count 129 10^3/uL (150-450); Red Blood Count 3.83 10^6 /uL (4.18-5.48); Red Cell Distribution Width 15 % (10-15); White Blood Count 12.2 10^3/uL (3.5-10.8)
[2021-11-13 18:52] LABS: INR 1.17 (0.86-1.15)
[2021-11-13 19:06] LABS: Albumin 3.6 g/dL (3.2-5.2); Albumin/Globulin Ratio 1.3 (1-3); Calcium 8.9 mg/dL (8.6-10.3); Globulin 2.7 g/dL (2-4); Total Bilirubin 0.6 mg/dL (0.2-1.0); Total Protein 6.3 g/dL (6.4-8.9); eGFR CKD-EPI 92.8 (>60)
[2021-11-13 19:07] LABS: Troponin I 0.01 ng/mL (<0.03)
[2021-11-13 19:59] LABS: Activated Partial Thrombo Time 25.4 seconds (26.0-38.0)
[2021-11-13] MEDS ORDERED: methylPREDNISolone 125 mg 2 ML VIAL IV ONE (22:59)
[2021-11-13] MEDS ORDERED: diPHENhydraMINE IV 50 MG/ML 1 ml VIAL (BENADRYL) IV ONE (23:00)
[2021-11-13] MEDS ORDERED: Al Hydrox/Mg Hydrox/Simet LIQ 30 ML UDC PO PRN (23:42)
[2021-11-13] MEDS ORDERED: MESALAMINE 0.375 GM PO PRN (23:50)
[2021-11-13] MEDS ORDERED: Mesalamine RECTAL SUSP 4 GM/60 ML RECTAL.SUS PR PRN (23:50)
[2021-11-14] MEDS ORDERED: Dextrose 50% Syringe 50 ml 25 GM/50 ML SYRINGE IV PUSH PRN (00:11)
[2021-11-14] MEDS ORDERED: Iodixanol (CONTRAST) 320 MG/ML 100 ML SDV IV ONE (00:56)
[2021-11-14] MEDS: Aspirin EC 81 mg TAB.EC (enteric coated) PO SCH ×2 (02:45→11:00)
[2021-11-14] MEDS ORDERED: CMCS: Budesonide 3 mg CAP (NF) PO SCH (09:00)
[2021-11-14] MEDS ORDERED: Regadenoson 0.4 MG/5 ML SYRINGE ONE (09:04)
[2021-11-14] MEDS ORDERED: Aminophylline 25 MG/ML VIAL ONE (09:04)
[2021-11-14 10:30] LABS: ABS Lymphocytes 0.3 10^3/ul (1.0-4.8); ABS Monocytes 0.2 10^3/ul (0-0.8); Hematocrit 34 % (42-52); Hemoglobin 11.7 g/dL (14.0-18.0); Lymphocyte % 3.2 %; Mean Corpuscular HGB Conc 34 g/dL (31-36); Mean Corpuscular Hemoglobin 30 pg (27-31); Mean Corpuscular Volume 87 fL (80-94); Mean Platelet Volume 8.8 fL (7.4-10.4); Platelet Count 128 10^3/uL (150-450); Red Blood Count 3.94 10^6 /uL (4.18-5.48); Red Cell Distribution Width 15 % (10-15); White Blood Count 10.6 10^3/uL (3.5-10.8)
[2021-11-14 10:44] LABS: Calcium 9.1 mg/dL (8.6-10.3); Potassium 4.1 mmol/L (3.5-5.0); eGFR CKD-EPI 91.8 (>60)
[2021-11-14 12:11] LABS: Hepatitis C Antibody Negative (Negative)
[2021-11-14 13:43] VITALS: BP 134/83
[2021-11-14] MEDS ORDERED: Latanoprost 0.005% 2.5 ml BTL BOTH EYES SCH (21:00)
== END 2021-11-14 13:32 | disposition home or self-care (01) ==
LOC: SUATTDRO → MEDTELE 16:24 → ED 16:24 → MEDTELE 11-14 03:51
PROVIDERS: ATTEND Hospitalist